=== PATIENT | male | born 1945 | race Caucasian/White ===

== ENCOUNTER 2017-03-28 12:09 | Emergency (ER) | payer MEDICARE, OTHER ==
[~2017-03-28] VITALS: Ht 180.3 cm; Wt 75.7 kg
[~2017-03-28 12:09] MED LIST: CORT5TAB PO; FURO40TA PO; LISI-515 PO; PANT20 PO; ROSU10 PO
[2017-03-28 12:13] VITALS: BP 106/74; PULSE 96; RESP 16; TEMP 97.7; O2SAT 99
[2017-03-28] MEDS ORDERED: diphenhydrAMINE HCL 50 MG/ML VIAL IV PUSH ONE (12:45)
[2017-03-28] MEDS ORDERED: DEXAMETHASONE SOD PHOS 20 MG/5 ML VIAL IV PUSH ONE (12:45)
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
[2017-03-28 13:44] VITALS: BP 110/70
== END 2017-03-28 13:45 | disposition home or self-care (01) ==
LOC: PHED 12:09
DX: T78.3XXA Angioneurotic edema, initial encounter (principal); R22.0 Localized swelling, mass and lump, head; M19.90 Unspecified osteoarthritis, unspecified site; E78.00 Pure hypercholesterolemia, unspecified; J44.9 Chronic obstructive pulmonary disease, unspecified; I10 Essential (primary) hypertension; F17.200 Nicotine dependence, unspecified, uncomplicated; Z79.899 Other long term (current) drug therapy
CPT/HCPCS: 96374; 96375; 99284; J1100; J1200

== ENCOUNTER 2017-06-23 14:41 | Emergency (ER) | payer MEDICARE, OTHER ==
[~2017-06-23] VITALS: Ht 180.3 cm; Wt 77.0 kg
[~2017-06-23 14:41] MED LIST changes: -LISI-515 PO; +TRAM50TA PO
[2017-06-23 14:49] VITALS: BP 114/80; PULSE 81; RESP 16; TEMP 98.2; O2SAT 97
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
[2017-06-23] MEDS ORDERED: TEMA7.5C PO (15:57)
[2017-07-28] MEDS ORDERED: FURO40TA (14:22)
[2017-07-28] MEDS ORDERED: TRAM50TA PO (14:22)
[2017-08-07] MEDS ORDERED: VITA1000 PO (08:18)
[2017-08-07] MEDS ORDERED: BIOT10TA PO (08:18)
[2017-08-07] MEDS ORDERED: FURO20TA PO (08:18)
[2017-08-07] MEDS ORDERED: VITA200C3 PO (08:18)
[2017-08-07] MEDS ORDERED: VITACAP7 PO (08:18)
[2017-08-07] MEDS ORDERED: MULT-65 PO (08:18)
[2017-08-07] MEDS ORDERED: LISI-519 PO (08:20)
== END 2017-06-23 16:12 | disposition home or self-care (01) ==
LOC: PHED 14:41
DX: S39.011A Strain of muscle, fascia and tendon of abdomen, initial encounter (principal); J44.9 Chronic obstructive pulmonary disease, unspecified; F17.200 Nicotine dependence, unspecified, uncomplicated; X58.XXXA Exposure to other specified factors, initial encounter
CPT/HCPCS: 99281

== ENCOUNTER → 2017-08-07 | Outpatient (CLI) | payer MEDICARE, OTHER ==
[~2017-08-07] MED LIST changes: +BIOT10TA PO; -CORT5TAB PO; +DOCU100C PO; +FURO20TA PO; +FURO40TA; -FURO40TA PO; +HYDR-3535 PO; +LISI-519 PO; +MULT-65 PO; -PANT20 PO; +TEMA7.5C PO; +TIOT1AER; +VITA1000 PO; +VITA200C3 PO; +VITACAP7 PO
[2017-08-07 09:05] LABS: AUTOMATED NEUTROPHIL # 1.9 TH/MM3 (1.8-7.7); BASOPHIL % 0.6 % (0.0-2.0); EOSINOPHIL # 0.3 TH/MM3 (0-0.4); EOSINOPHIL % 6.4 % (0.0-4.0); HEMATOCRIT 41.2 % (39.0-51.0); HEMO FLAGS DIFF FINAL; LYMPH % 45.9 % (9.0-44.0); LYMPHOCYTE # 2.4 TH/MM3 (1.0-4.8); MEAN CELL VOLUME 96.8 FL (80.0-100.0); MEAN CORPUSCULAR HEMOGLOBIN 33.6 PG (27.0-34.0); MEAN CORPUSCULAR HGB CONC 34.7 % (32.0-36.0); MONO % 9.8 % (0.0-8.0); NEUT % 37.3 % (16.0-70.0); PLATELET COUNT 118 TH/MM3 (150-450); RED BLOOD COUNT 4.26 MIL/MM3 (4.50-5.90); RED CELL DISTRIBUTION WIDTH 13.2 % (11.6-17.2); WHITE BLOOD COUNT 5.1 TH/MM3 (4.0-11.0)
[2017-08-07 09:14] LABS: APTT (PATIENT) 37.8 SEC (24.3-30.1); PROTHROMBIN TIME - PATIENT 11.2 SEC (9.8-11.6)
[2017-08-07 09:19] LABS: BLOOD, URINE NEG (NEG); COMMENT (UR) CULT NOT INDICATED; CULTURE IF INDICATED CULT NOT INDICATED; GLUCOSE,URINE NEG (NEG); HYALINE CAST, URINE 3 /lpf (RARE); KETONE, URINE NEG (NEG); NITRITE,URINE NEG (NEG); PH, URINE 6.5 (5.0-8.5); URINE COLOR YELLOW (YELLW/STRAW)
[2017-08-07 09:32] LABS: ANION GAP 4 MEQ/L (5-15); AST (GOT) 27 U/L (15-37); BICARBONATE 30.6 MEQ/L (21.0-32.0); BLOOD UREA NITROGEN 13 MG/DL (7-18); CHLORIDE 106 MEQ/L (98-107); GLOMERULAR FILTRATION RATE 58 ML/MIN (>89); GLUCOSE,FASTING 83 MG/DL (74-99); POTASSIUM 3.3 MEQ/L (3.5-5.1); SODIUM (NA) 141 MEQ/L (136-145)
[2017-08-07 09:37] LABS: ALKALINE PHOSPHATASE 108 U/L (45-117); ALT (GPT) 21 U/L (12-78); TOTAL BILIRUBIN ADULT 0.4 MG/DL (0.2-1.0)
== END ==
LOC: CPRE 08:02
PROVIDERS: ATTEND Neurological Surgery
DX: Z01.812 Encounter for preprocedural laboratory examination (principal); Z01.818 Encounter for other preprocedural examination; M43.10 Spondylolisthesis, site unspecified
CPT/HCPCS: 36415; 80053; 81001; 85025; 85610; 85730

== ENCOUNTER 2017-08-12 06:27 | Inpatient (IN) | payer MEDICARE, OTHER ==
[~2017-08-12] VITALS: Ht 180.3 cm; Wt 76.3 kg
[~2017-08-12 06:27] MED LIST changes: -DOCU100C PO; -FURO40TA; -HYDR-3535 PO; -TIOT1AER
[2017-08-12] MEDS ORDERED: ACETAMINOPHEN 1000 MG/100 ML 100 ML IV ONE (06:54)
[2017-08-12] MEDS ORDERED: INSULIN HUMAN REGULAR 1,000 UNITS/10 ML VIAL SQ PRN (07:15)
[2017-08-12] MEDS ORDERED: SODIUM CHLORID 0.9% 500 ML IV PRN (07:15)
[2017-08-12] MEDS ORDERED: LACTATED RINGER'S 1000 ML IV PRN (07:15)
[2017-08-12] MEDS ORDERED: METOPROLOL TARTRATE 25 MG TAB PO PRN (07:15)
[2017-08-12] MEDS ORDERED: SODIUM CHLOR 0.9% 1000 ML INJ 1,000 ML IV SCH (07:15)
[2017-08-12] MEDS ORDERED: VANCOMYCIN 1000 MG/NS 250 ML IV SCH ×2 (07:15)
[2017-08-12] MEDS ORDERED: CHLORHEXIDINE GLUCONATE 2 % 1 PACK (2 CLOTHS) TOPICAL PRN (07:15)
[2017-08-12] MEDS ORDERED: POVIDONE IODINE 5% (ANTISEPSIS KIT) 4 APPLICATIONS EACH NARE PRN (07:15)
[2017-08-12] MEDS ORDERED: HEPARIN SODIUM - SQ 10,000 UNITS/ML VIAL ONE (08:07)
[2017-08-12] MEDS ORDERED: THROMBIN (TOPICAL) 5,000 UNIT VIAL ONE (08:08)
[2017-08-12] MEDS ORDERED: GENTAMICIN SULFATE 80 MG/2 ML VIAL ONE (08:08)
[2017-08-12] MEDS ORDERED: ceFAZolin 2 GM PREMIX 50 ML ONE (08:08)
[2017-08-12] MEDS ORDERED: GELFOAM SIZE 100 ONE (08:08)
[2017-08-12] MEDS ORDERED: BUPIVACAINE HCL PF 0.5% 30 ML VIAL ONE ×2 (08:09→08:12)
[2017-08-12] MEDS ORDERED: VANCOMYCIN HCL 1000 MG VIAL ONE (08:12)
[2017-08-12 08:15] LABS: APTT (PATIENT) 37.1 SEC (24.3-30.1); PROTHROMBIN TIME - PATIENT 11.4 SEC (9.8-11.6)
[2017-08-12] MEDS ORDERED: PROPOFOL 500 MG/50 ML INJ 150 ML ONE (08:31)
[2017-08-12] MEDS ORDERED: FAMOTIDINE 20 MG/2 ML VIAL ONE (08:31)
[2017-08-12] MEDS ORDERED: BUPIVACAINE/EPINEPHRINE 0.5% 50 ML VIAL ONE (10:10)
[2017-08-12] MEDS ORDERED: ePHEDrine/NS 25 MG/5 ML SYR IV ONE (12:00)
[2017-08-12] MEDS ORDERED: NEOSTIGMINE 3 MG/3 ML SYR IV ONE (12:00)
[2017-08-12] MEDS ORDERED: ONDANSETRON HCL 4 MG/2 ML VIAL IV PUSH ONE (12:00)
[2017-08-12] MEDS ORDERED: PHENYLEPH/NS 1000 MCG/10 ML SYR IV ONE (12:00)
[2017-08-12] MEDS ORDERED: DEXAMETHASONE SOD PHOS 4 MG/ML VIAL IV ONE (12:00)
[2017-08-12] MEDS ORDERED: LACTATED RINGER'S 1000 ML INJ 1,000 ML IV ONE (12:00)
[2017-08-12] MEDS ORDERED: MIDAZOLAM HCL 2 MG/2 ML VIAL IV ONE (12:00)
[2017-08-12] MEDS ORDERED: GLYCOPYRROLATE 1 MG/5 ML SYRINGE IV PUSH ONE (12:00)
[2017-08-12] MEDS ORDERED: LIDOCAINE HCL 1% PF 5 ML AMPULE OTHER ONE (12:00)
[2017-08-12] MEDS ORDERED: PROPOFOL 200 MG/20 ML AMP IV ONE (12:00)
[2017-08-12] MEDS ORDERED: DO NOT ADM ANY ANTICOAGULANT DRUGS PRN (14:05)
[2017-08-12] MEDS ORDERED: *MEPERIDINE 25 MG INJ VIAL PERIprocedural Use ONLY ONE (14:25)
[2017-08-12] MEDS ORDERED: SODIUM CHLORIDE 0.9% FLUSH 5 ML FLUSH IVF PRN (14:45)
[2017-08-12] MEDS ORDERED: diphenhydrAMINE HCL 50 MG/ML VIAL IV PUSH PRN (14:45)
[2017-08-12] MEDS ORDERED: NALOXONE HCL 0.4 MG/ML AMP IV PUSH PRN (14:45)
--- NOTE | 2017-08-12 14:51 | PD.OP ---
Operative Report Date of Surgery: Aug 12, 2017 Preoperative Diagnosis: LUMBAR SPONDYLOSIS AND DISK HERNIATION Postoperative Diagnosis: LUMBAR SPONDYLOSIS AND DISK HERNIATION Procedure: L5-S1 laminectomy, interbody arthrodhesis using PEEK cage and autologous bone graft, L5-S1 instrumental fixation using transpedicular screws and rods, L5-S1 posterolateral fusion using autologous bone graft and demineralized bone matrix. Microsurgical dissection Anesthesia: GENERAL Surgeon: Andrew Davila Mental Measurements Teacher(s): Penny Saleh Operation and Findings: INDICATIONS FOR PROCEDURE Mr. Elena is a 72 year-old male who presented with intractable mechanical back pain and caroline evidence of lower extremity radiculopathy. He has history of a prior L3-L5 posterior instrumented fusion. He has developed severe adjacent level degenerative disk disease with a large disk herniation at L5-S1. He failed maximum nonsurgical management including multiple modalities of conservative treatment as well as pain management interventions by an interventional pain specialist. The patient has undergone a previous surgical procedure. A redo surgical decompression and arthrodhesis were indicated as a last resort. The [id number] details of the procedure, indications, alternatives, risks and potential complications were fully discussed with the patient. The patient fully understood. All the questions were answered. No guarantees were given. The patient voiced requesting the procedure and provided informed consents. The patient was offered the alternative of delaying the procedure and continuing with nonsurgical management. DETAILS OF THE SURGICAL PROCEDURE Prior to the procedure, the surgical incision was marked in the preoperative surgical holding room, and the procedure, risks, and potential complications revisited with the patient. Placement of electrodes for intraoperative neurophysiological monitoring was completed. The patient was taken to the operative room, and following induction of general anesthesia, endotracheal intubation was performed. A Iverson catheter, bilateral JAMESON hose and sequential compression devices were placed and kept throughout the procedure. The patient was positioned prone, over a Jaya table using gel pads and bolsters.. All pressure in the preoperative surgical holding room points were carefully padded with eggcrate and gel mattress. The eyes were taped shut after ointment was applied by the anesthesiologist to prevent corneal abrasion. A bear hugger was placed over the exposed upper body to maintain control of the core body temperature. The electrophysiological team placed needles and electrodes in the proper location and baseline SSEPs were registered prior to and after positioning. Following positioning the levels were carefully assessed using AP and lateral views with the C-arm. The surgical procedure was performed in several steps as follows: SURGICAL APPROACH Once the patient was positioned and the proper levels were confirmed with the C-arm, a midline incision was outlined on the skin extending from the spinous process of L4 to S1. The skin incision was made with a #10 blade. Small subcutaneous bleeders were controlled with the cautery and the dissection was carried out into the deeper planes opening the thoracolumbar fascia with the Bovie. The spinous process of L4-S1 were identified and a subperiosteal dissection was carried out over the spinous process laminae, facet and transverse processes of L4-S1. The prior instrumentation at L3, L4, and L5 was carefully exposed and a self-retaining retractor was placed on the incision. At this point of the procedure, the caps of the previously placed screws at L3, L4, and L5 were sequentially removed allowing removal of the rods. INSTRUMENTAL FIXATION At this point of the procedure, placement of bilateral transpedicular screws was necessary for stabilization of the spine. Initially, the entry point for the screw was selected anatomically at the junction of the facet joint, transverse process and para interarticularis. Bilateral transpedicular screws were placed at S1. The screw trajectory was initiated with a TPS drill using an AM8 drill attachment followed by the use of an awl, and then a pedicle finder, to cannulize the screw trajectory into the arterial body. A ball-tipped sounder was used to ensure integrity of the trajectory. A tap was used to create the propper threads for the screws. The trajectory was then reassessed with a ball-tipped sounder. Finally, bilateral transpedicular screws were carefully inserted bilaterally at S1 under fluoroscopic visualization. A proper purchase was achieved with all screws. The position for each screw was assessed electrophysiologically stimulating each screw stimulating each screw with a nerve stimulator and radiologically with an AP, lateral and oblique views. Scan obtained with the isocentric C-arm. SURGICAL DECOMPRESSION The patient had significant mass effect over the thecal sac and exiting nerve roots S1. In order to relieve the neuro compression, it was necessary to perform a decompressive laminectomy, to allow proper decompression of the spinal canal and bilateral lateral recess and foramen. Note that the scope of such decompression was significantly more extensive than the minimal exposure necessary to perform and interbody fusion as the patient has severe facet arthropathy and degeneration of the disk at L5-S1 with hypertrophic joint facets. At this point of the procedure, the operative microscope was draped in the usual sterile fashion and brought to the field. The rest of the surgical procedure was performed using microdissection technique with exception of the closure. Under the operative microscope, a bilateral decompressive laminectomy was performed at L5-S1. The spinous processes were removed with an Leksell and the laminae was drilled bilaterally with the TPS drill exposing the ligamentum flavum. There was severe facet arthropathy and in order to achieve a proper decompression, signicant amount of facet had to be drilled with a TPS drill, which resulted in further instability. The superior border of the ligamentum flavum was carefully elevated with a nerve hook and ligamentum dissector and removed with the 3mm and 4mm Kerrison. The L3 and L4 nerve roots were identified and followed towards the foramen. A bilateral foraminotomy was performed with a Kerrison. The lateral epidural space was carefully exposed and epidural veins were coagulated with the bipolar and incised with microscissors. Gentle medial retraction of the thecal sac allowed to expose the disk space L5-S1. The annulus was coagulated with the bipolar and incised with an 11 blade and a microdiskectomy was exposed in the standard fashion allowing for excellent decompression of the neuro structures. There was severe degeneration of the disk INTERBODY ARTHRODHESIS An interbody arthrodesis is necessary in order to further stabilize the spine and maintain distraction of the disk space and to increase the chances of obtaining a solid interbody fusion, it was necessary the insertion of an interbody device into the disk space. Otherwise, the disk space could collapse compromising the surgical results. At this point of the procedure, the microdiskectomy was completed at L5-S1 A reverse angled curet was applied to underneath the posterior longitudinal ligament and used to push the disk fragments into the disk space so they could be safely removed with the pituitary forceps. Once the diskectomy was completed, it was necessary to distract the space and decorticate the endplates in order to eliminate the cartilaginous endplate and expose healthy bone appropriate to perform the interbody fusion. The endplates at L5-S1 were distracted with a paddle distractor and then carefully decorticated using a series of bone lynn, ring curets, eliminating the cartilaginous endplate and exposing healthy bone. Disk distractor was used to increase the site. Initial motion was noted at the disk which was consistent with instability due to severe facet arthropathy. Once a thorough preparation of the disk space was achieved, the disk space was irrigated with antibiotic solution and the interbody arthrodesis performed by carefully impacting a Peek cage filled with autologous iliac crest bone graft in position. The use of several showed impactor with different angulations allowed for excellent positioning of the interbody cage. A solid position of the cage with good purchase into the disk space was achieved. The position of the cage was assessed anatomically without AP and lateral probe and radiologically with a C-arm. POSTEROLATERAL FUSION The posterolateral fusion is a critical component to the procedure to prevent future fatigue of the instrumentation and stabilize the spine. Initially the transverse processes of the vertebral bodies L5-S1, lateral surface of the facet lateral gutters of the spine at L5-S1 were carefully cleaned from all soft tissue and muscle attachments. The area was irrigated with antibiotic solution. Subsequently, the transverse processes, lateral surface of the facets and lateral gutters of the spine were thoroughly decorticated using the TPS drill with a 5 mm cutting venkata exposing cancellous bone in preparation of the posterolateral fusion. The incision was then irrigated again with antibiotic solution and the posterolateral fusion was performed by carefully packing the gutters of the spine at L5-S1 with autologous iliac crest bone, and with demineralized bone matrix. As much bone as possible was packed in the gutters of the spine. COMPLETION OF INSTRUMENTATION AND CLOSURE The rods were brought to the field, applied to all the screws. The screw caps were sequentially applied. Compression was performed between the pedicle screws at L5-S1 and final tightening of all screws was completed using a pre-calibrated torque wrench. A cross link was used to connect the rods in order to increase the stability of the construct. The cross links were secured using a pre-calibrated torque wrench. The incision was again irrigated with a large amount of antibiotic solution. Hemostasis was secured with the bipolar cautery. The Valsalva maneuver performed by anesthesiologist failed to show any evidence of cerebrospinal fluid leak or bleeding. A 7 mm Jaya-Hendricks drain was left in the epidural space and externalized through a separate stab incision. The incision was closed in planes. 0 Vicryl was used in interrupted fashion to close the thoracolumbar fascia and the superficial fascia. The subcutaneous tissue was approximated with 3-0 Vicryl. Special care was taken to avoid any space. The skin was closed with 4-0 Vicryl in a running fashion. Each plane of closure was irrigated with antibiotic solution. An optifoam dressing was applied At the end of the procedure the sponge, needle and instrument counts were all correct. Estimated blood loss was 250 cc or less. No blood transfusion was given. The entire procedure was performed using continuous electrophysiological monitoring of the somato sensorial evoked potentials and EMG. The patient received prophylactic antibiotics. The patient was then extubated and transferred to the recovery room in stable condition. Andrew Davlia MD Aug 12, 2017 14:51
[2017-08-12] MEDS ORDERED: PILL SPLITTER OTHER PRN (15:00)
[2017-08-12] MEDS ORDERED: ACETAMINOPHEN 325 MG TAB PO PRN (15:00)
[2017-08-12] MEDS: NS + KCL 20 MEQ INJ 1,000 ML IV SCH (15:00)
[2017-08-12] MEDS: HYDROmorphone HCL PCA 6 MG/30 ML IV SCH (15:16)
[2017-08-12] MEDS: ceFAZolin 2 GM PREMIX 50 ML IV SCH (17:00)
--- NOTE | 2017-08-12 17:28 | PD.CONS ---
[facility] By Dr[facility] Davila Reason for Consult Medical management and help with alcohol and tobacco abuse Primary Care Physician Caio Lucia Diagnoses: (1) Status post lumbar spinal fusion History of Present Illness Mr. Elena is a 72 year-old male who presented with intractable mechanical back pain and caroline evidence of lower extremity radiculopathy. He has history of a prior L3-L5 posterior instrumented fusion. He has developed severe adjacent level degenerative disk disease with a large disk herniation at L5-S1. He failed maximum nonsurgical management including multiple modalities of conservative treatment as well as pain management interventions by an interventional pain specialist. The patient has undergone a previous surgical procedure. A redo surgical decompression and arthrodhesis were indicated as a last resort. We have been asked to see the patient regarding help with medical management. Patient has a extensive medical history of hypertension hyperlipidemia tobacco COPD alcohol abuse and marijuana abuse as well as bladder issues We'll make sure that that placed the patient on CIWA protocol I discussed with the patient and Dr. Davila Review of Systems Constitutional: DENIES: Diaphoretic episodes, Fatigue, Fever, Weight gain, Weight loss, Dizziness, Change in appetite Endocrine: DENIES: Heat/cold intolerance, Polydipsia, Polyuria, Polyphagia Eyes: DENIES: Blurred vision, Diplopia, Eye inflammation, Eye pain, Vision loss Ears, nose, mouth, throat: DENIES: Tinnitus, Hearing loss, Vertigo, Nasal discharge, Oral lesions Respiratory: COMPLAINS OF: Cough, Sputum production, DENIES: Apneas, Snoring, Wheezing, Hemoptysis Cardiovascular: DENIES: Chest pain, Palpitations, Syncope, Dyspnea on Exertion , PND, Lower Extremity Edema Gastrointestinal: DENIES: Abdominal pain, Black stools, Bloody stools, Constipation Genitourinary: DENIES: Sexual dysfunction, Urinary frequency, Urinary incontinence Musculoskeletal: COMPLAINS OF: Joint pain, DENIES: Muscle aches, Stiffness, Joint Swelling Integumentary: DENIES: Abnormal pigmentation, Nail changes Hematologic/lymphatic: DENIES: Bruising, Lymphadenopathy Immunologic/allergic: DENIES: Eczema, Urticaria Neurologic: COMPLAINS OF: Abnormal gait, Localized weakness, Paresthesias, DENIES: Headache, Seizures, Speech Problems, Tremor Psychiatric: DENIES: Anxiety, Confusion, Mood changes, Depression, Hallucinations, Agitation, Suicidal Ideation Past Family Social History Allergies: Coded Allergies: adhesive (Unverified Allergy, Severe, SKIN PEELS OFF, 08/12/17) penicillin G (Unverified Allergy, Intermediate, passes out, 08/12/17) Past Medical History Hypertension Hyperlipidemia Tobacco abuse COPD Alcohol abuse Marijuana use Kidney stones and osteoarthritis Prior cervical surgery Prior lumbar surgery Past Surgical History Bilateral cataracts Tonsillectomy Cervical surgery Left total knee Reported Medications Reported Meds & Active Scripts Active Reported Lisinopril 5 Mg Tab 5 Mg PO DAILY Biotin 10 Mg Tab 10 Mg PO DAILY Vitamin D-1000 (Cholecalciferol) 1,000 Unit Tab 1,000 Units PO DAILY Vitamin E 200 Unit Cap 400 Units PO DAILY B Complex (B-Complex Vitamins) 1 Cap 1 Cap PO DAILY Multi-Vitamin Daily (Multiple Vitamin) 1 Tab Tab 1 Tab PO DAILY Furosemide 20 Mg Tab 10 Mg PO DAILY Tramadol (Tramadol HCl) 50 Mg Tab 50 Mg PO HS Temazepam 7.5 Mg Cap 7.5 Mg PO HS PRN Crestor (Rosuvastatin Calcium) 10 Mg Tab 10 Mg PO DAILY Active Ordered Medications Current Medications Acetaminophen 100 ml @ As Directed STK-MED ONCE IV ; Start 08/12/17 at 06:54; Stop 08/12/17 at 06:55; Status DC Lactated Ringer's 1,000 ml @ 30 mls/hr Q24H PRN IV SEE LABEL COMMENTS Last administered on 08/12/17 08:00; Start 08/12/17 at 07:15; Stop 08/15/17 at 07 :14 Sodium Chloride 500 ml @ 30 mls/hr [id number] PRN IV SEE LABEL COMMENTS; Start at 07:15; Stop 08/15/17 at 07:14 Metoprolol Tartrate (Lopressor) 25 mg AERIAL PLANTING AND CULTIVATION MANAGER PRN PO SEE LABEL COMMENTS; Start 08/12/17 at 07:15; Stop 08/15/17 at 07:14 Povidone Iodine (Betadine 5% Antisepsis Kit) 1 applic AERIAL PLANTING AND CULTIVATION MANAGER PRN EACH NARE SEE LABEL COMMENTS Last administered on 08/12/17 08:00; Start 08/12/17 at 07: 15; Stop 08/15/17 at 07:14 Chlorhexidine Gluconate (Chlorhexidine 2% Cloth) 3 pack AERIAL PLANTING AND CULTIVATION MANAGER PRN TOPICAL SEE LABEL COMMENTS Last administered on 10/10/17at 07:30; Start 08/12/17 at 07: 15; Stop 08/15/17 at 07:14 Insulin Human Regular (NovoLIN R INJ) See Protocol Table ... AERIAL PLANTING AND CULTIVATION MANAGER PRN SQ SEE PROTOCOL TABLE; Start 08/12/17 at 07:15; Stop 08/15/17 at 07:14 Sodium Chloride 1,000 ml @ 30 mls/hr Q24H IV ; Start 08/12/17 at 07:15; Stop 08/13/17 at 07:14 Vancomycin HCl 1000 mg/Sodium Chloride 250 ml @ 250 mls/hr AERIAL PLANTING AND CULTIVATION MANAGER IV ; Start 08/12/17 at 07:15; Stop 08/13/17 at 07:14 Heparin Sodium (Porcine) (Heparin Inj) 30,000 units STK-MED ONCE .ROUTE ; Start 08/12/17 at 08:07; Stop 08/12/17 at 08:08; Status DC Thrombin (Thrombin Top Soln) 10,000 units STK-MED ONCE .ROUTE Last administered on 08/12/17 11:00; Start 08/12/17 at 08:08; Stop 08/12/17 at 08 :09; Status DC Cefazolin Sodium/ Dextrose 50 ml @ As Directed STK-MED ONCE .ROUTE Last administered on 08/12/17 10:07; Start 08/12/17 at 08:08; Stop 08/12/17 at 08 :09; Status DC Gelatin (Gelfoam 100 Top) 1 foam STK-MED ONCE .ROUTE Last administered on 08/12 11:00; Start 08/12/17 at 08:08; Stop 08/12/17 at 08:09; Status DC Gentamicin Sulfate (Gentamicin Inj) 240 mg STK-MED ONCE .ROUTE Last administered on 08/12/17 11:00; Start 08/12/17 at 08:08; Stop 08/12/17 at 08 :09; Status DC Bupivacaine HCl (Marcaine Pf 0.5% Inj) 30 ml STK-MED ONCE .ROUTE ; Start at 08:09; Stop 08/12/17 at 08:10; Status DC Vancomycin HCl (Vancomycin Inj) 1,000 mg STK-MED ONCE .ROUTE Last administered on 08/12/17 11:00; Start 08/12/17 at 08:12; Stop 08/12/17 at 08:13; Status DC Bupivacaine HCl (Marcaine Pf 0.5% Inj) 30 ml STK-MED ONCE .ROUTE ; Start at 08:12; Stop 08/12/17 at 08:13; Status DC Propofol 150 ml @ As Directed STK-MED ONCE .ROUTE ; Start 08/12/17 at 08:31; Stop 08/12/17 at 08:32; Status DC Famotidine (Pepcid Inj) 20 mg STK-MED ONCE .ROUTE ; Start 08/12/17 at 08:31; Stop 08/12/17 at 08:32; Status DC Bupivacaine HCl/ Epinephrine Bitart (Sensorcaine-Epi 0.5% 50 ml Inj) 50 ml STK- MED ONCE .ROUTE Last administered on 08/12/17 11:45; Start 08/12/17 at 10:10 ; Stop 08/12/17 at 10:11; Status DC Meperidine HCl (*DEMEROL INJ PERIprocedural ONLY) 25 mg STK-MED ONCE .ROUTE Last administered on 08/12/17 14:25; Start 08/12/17 at 14:25; Stop 08/12/17 at 14:26; Status DC Potassium Chloride/Sodium Chloride 1,000 ml @ 100 mls/hr Q10H IV Last administered on 08/12/17 15:00; Start 08/12/17 at 14:33 IV Flush (NS Flush) 2 ml UNSCH PRN IVF FLUSH AFTER USING IV ACCESS; Start 08/19 at 14:45 IV Flush (NS Flush) 2 ml BID IVF ; Start 08/12/17 at 21:00 Cefazolin Sodium/ Dextrose 50 ml @ 100 mls/hr Q8H IV ; Start 08/12/17 at 17:00 ; Stop 08/13/17 at 09:29 Pantoprazole Sodium (Protonix Inj) 40 mg DAILY IVP ; Start 08/13/17 at 09:00 Morphine Sulfate (Morphine Inj) 2 mg Q2H PRN IV PUSH PAIN SCALE 1 TO 6; Start 08/12/17 at 15:00 Morphine Sulfate (Morphine Inj) 4 mg Q2H PRN IV PUSH PAIN SCALE 7 TO 10; Start 08/12/17 at 15:00 Acetaminophen (Tylenol) 650 mg Q4H PRN PO TEMPERATURE > 101.5 F; Start at 15:00 Naloxone HCl (Narcan Inj) 0.4 mg UNSCH PRN IV PUSH RESPIRATORY RATE LESS THAN 10; Start 08/12/17 at 14:45 Diphenhydramine HCl (Benadryl Inj) 25 mg Q6H PRN IV PUSH ITCHING; Start at 14:45 Hydromorphone HCl (Dilaudid INSPECTING ENGINEER Inj) 6 mg UNSCH IV Last administered on t 15:16; Start 08/12/17 at 14:45 INSPECTING ENGINEER Dosage Infused (Pha) 1 Q8HR .XX ; Start 08/12/17 at 22:00 Miscellaneous Information ALL NURSING DEPARTME... UNSCH PRN .XX SEE LABEL COMMENTS; Start 08/12/17 at 14:05; Stop 08/13/17 at 14:04 Cholecalciferol (Vitamin D3) 1,000 units DAILY PO ; Start 08/13/17 at 09:00 Furosemide (Lasix) 10 mg DAILY PO ; Start 08/13/17 at 09:00 Lisinopril (Prinivil) 5 mg DAILY PO ; Start 08/13/17 at 09:00 Temazepam (Restoril) 7.5 mg HS PRN PO INSOMNIA; Start 08/12/17 at 21:00 Tramadol HCl (Ultram) 50 mg HS PO ; Start 08/12/17 at 21:00 Vitamin B Complex/ Vitamin C (Allbee C) 1 tab DAILY PO ; Start 08/13/17 at 09: 00 Non-Formulary Medication 10 mg DAILY PO ; Start 08/13/17 at 09:00; Stop at 09:00; Status DC Multivitamins (Theragran) 1 tab DAILY PO ; Start 08/13/17 at 09:00 Atorvastatin Calcium (Lipitor) 20 mg DAILY PO ; Start 08/13/17 at 09:00 Vitamin E (Vitamin E) 400 units DAILY PO ; Start 08/13/17 at 09:00 Miscellaneous (Pill Splitter) 1 ea UNSCH PRN OTHER SEE LABEL COMMENTS; Start 08/12/17 at 15:00 Thiamine HCl (Vitamin B1) 100 mg DAILY PO ; Start 08/13/17 at 09:00 Folic Acid (Folate) 1 mg DAILY PO ; Start 08/13/17 at 09:00 Family History Stomach ulcers in the family as well as tobacco abuse Social History Drinks gin and tonic Smokes a pack every 3 days Occasional marijuana Physical Exam Vital Signs Vital Signs Date Time Temp Pulse Resp B/P (MAP) Pulse Ox O2 Delivery O2 Flow Rate FiO2 08/12/17 15:16 15 08/12/17 14:05 96.7 80 17 108/58 (75) 100 Nasal Cannula 3 08/12/17 07:59 97.5 64 18 115/75 (88) 97 Physical Exam GENERAL: This is a well-nourished, well-developed patient, in no apparent distress. SKIN: No rashes, ecchymoses or lesions. Cool and dry. HEAD: Atraumatic. Normocephalic. No temporal or scalp tenderness. EYES: Pupils equal round and reactive. Extraocular motions intact. No scleral icterus. No injection or drainage. ENT: Nose without bleeding, purulent drainage or septal hematoma. Throat without erythema, tonsillar hypertrophy or exudate. Uvula midline. Airway patent. Tongue is midline NECK: Trachea midline. No JVD or lymphadenopathy. Supple, nontender, no meningeal signs. CARDIOVASCULAR: Regular rate and rhythm without murmurs, gallops, or rubs. S1- S2 no S3 or S4 RESPIRATORY: Clear to auscultation. Breath sounds equal bilaterally. No wheezes , rales, or rhonchi. GASTROINTESTINAL: Abdomen soft, non-tender, nondistended. No hepato-splenomegaly , or palpable masses. No guarding. MUSCULOSKELETAL: Extremities without clubbing, cyanosis, or edema. No joint tenderness, effusion, or edema noted. No calf tenderness. Negative Homans sign bilaterally. NEUROLOGICAL: Awake and alert. Cranial nerves II through XII intact. Motor and sensory grossly within normal limits. Five out of 5 muscle strength in all muscle groups. Normal speech. Insight and judgment is good; mood and behaviors appropriate Laboratory Laboratory Tests Test 08/12/17 07:50 Prothrombin Time 11.4 Prothromb Time International Ratio 1.0 Activated Partial Thromboplast Time 37.1 Assessment and Plan Problem List: (1) Hypertension ICD Code: I10 - Essential (primary) hypertension (2) Hyperlipidemia ICD Code: E78.5 - Hyperlipidemia, unspecified (3) COPD (chronic obstructive pulmonary disease) ICD Code: J44.9 - Chronic obstructive pulmonary disease, unspecified (4) Tobacco abuse ICD Code: Z72.0 - Tobacco use (5) Alcohol abuse ICD Code: F10.10 - Alcohol abuse, uncomplicated (6) Osteoarthritis ICD Code: M19.90 - Unspecified osteoarthritis, unspecified site (7) Status post lumbar spinal fusion ICD Code: Z98.1 - Arthrodesis status Status: Acute Assessment and Plan Status post lumbar surgery pain control to Dr. Davila. Alcohol abuse continue on CIWA protocol continue on multivitamin thiamine and folic acid Tobacco abuse NicoDerm patch and duo nebs as needed COPD duo nebs as needed Hypertension home medications hyperlipidemia home medications Pain control per Dr. Giovanni guzman Physical therapy and occupational therapy as able Code Status Full code Discussed Condition With Patient and RN and Danny Gaspar DO Aug 12, 2017 17:28
[2017-08-12] MEDS ORDERED: FLUMAZENIL 0.5 MG/5 ML VIAL IV PUSH PRN (17:30)
[2017-08-12] MEDS ORDERED: HALOPERIDOL LACTATE 5 MG/ML AMP IM PRN (17:30)
[2017-08-12] MEDS ORDERED: LORazepam 2 MG/ML VIAL IV PUSH PRN ×4 (17:30)
[2017-08-12] MEDS ORDERED: NICOTINE 7 MG/24 HR PATCH T-DERMAL ONE (17:30)
[2017-08-12] MEDS ORDERED: LORazepam 1 MG TAB PO PRN (17:30)
[2017-08-12] MEDS ORDERED: LORazepam 2 MG TAB PO PRN (17:30)
[2017-08-12 17:43] VITALS: BP 117/74; PULSE 95; RESP 18; TEMP 97.5; O2SAT 98
[2017-08-12 21:27] VITALS: BP 109/66; PULSE 80; RESP 20; TEMP 97.4; O2SAT 95
[2017-08-12] MEDS: MORPHINE SULFATE 4 MG/ML INJ IV PUSH PRN (21:28)
[2017-08-12] MEDS: guaiFENesin E.R. 600 MG TAB PO SCH (21:28)
[2017-08-12] MEDS: SODIUM CHLORIDE 0.9% FLUSH 5 ML FLUSH IVF SCH (21:29)
[2017-08-12] MEDS: traMADol HCL 50 MG TAB PO SCH (21:29)
[2017-08-12] MEDS: TEMAZEPAM 7.5 MG CAP PO PRN (21:50)
[2017-08-12] MEDS: PCA - TOTAL MG DILAUDID DELIVERED PER SHIFT SCH (22:56)
[2017-08-13] VITALS (8 sets, daily range): BP systolic 89–113; BP diastolic 52–64; PULSE 79–99; RESP 16–20; TEMP 97.7–98; O2SAT 96–99
[2017-08-13] MEDS: ceFAZolin 2 GM PREMIX 50 ML IV SCH ×2 (00:31→08:40)
[2017-08-13] MEDS: NS + KCL 20 MEQ INJ 1,000 ML IV SCH ×3 (00:32→21:10)
[2017-08-13] MEDS: HYDROmorphone HCL PCA 6 MG/30 ML IV SCH ×2 (00:35→17:22)
[2017-08-13] MEDS: PCA - TOTAL MG DILAUDID DELIVERED PER SHIFT SCH ×2 (05:57→14:00)
--- NOTE | 2017-08-13 07:23 | RADRPT ---
EXAM DATE/TIME: 08/12/2017 10:00 [facility] COMPARISON: SPINE LUMBAR LTD (AP & LAT), February 21, 2016, 11:41. INDICATIONS : Post-op L5-S1 posterior lumbar fusion. MEDICAL HISTORY : None. SURGICAL HISTORY : Fusion, lumbar. ENCOUNTER: Initial ACUITY: 1 day PAIN SCORE: Non-responsive. LOCATION: Lumbar spine. FINDINGS: Single AP view of the inferior aspect the lumbar spine demonstrates left-sided pedicular screws exten ding from L3-S1. There are right pedicular screws at L5-S1. CONCLUSION: Spot fluoroscopic image of the lumbar spine, as above. Ilan Michelle MD on August 13, 2017 at 7:16 Board Certified Radiologist. This report was verified electronically.
[2017-08-13] MEDS: LISINOPRIL 5 MG TAB PO SCH (08:33)
[2017-08-13] MEDS: VITAMIN E 400 UNIT CAP PO SCH (08:33)
[2017-08-13] MEDS: FOLIC ACID 1 MG TAB PO SCH (08:34)
[2017-08-13] MEDS: FUROSEMIDE 20 MG TAB PO SCH (08:34)
[2017-08-13] MEDS: ATORVASTATIN 20 MG TAB PO SCH (08:34)
[2017-08-13] MEDS: THIAMINE HCL 100 MG TAB PO SCH (08:34)
[2017-08-13] MEDS: SODIUM CHLORIDE 0.9% FLUSH 5 ML FLUSH IVF SCH ×2 (08:35→21:00)
[2017-08-13] MEDS: CHOLECALCIFEROL (VIT D3) 1000 UNIT TAB PO SCH (08:35)
[2017-08-13] MEDS: PANTOPRAZOLE SODIUM 40 MG VIAL IVP SCH (08:35)
[2017-08-13] MEDS: VITAMIN B COMPLEX/VIT C TAB PO SCH (08:36)
[2017-08-13] MEDS: guaiFENesin E.R. 600 MG TAB PO SCH ×2 (08:36→21:12)
[2017-08-13] MEDS: MULTIVITAMIN TAB PO SCH (08:36)
[2017-08-13] MEDS: NICOTINE 7 MG/24 HR PATCH T-DERMAL SCH (08:38)
[2017-08-13] MEDS: MORPHINE SULFATE 4 MG/ML INJ IV PUSH PRN (08:39)
[2017-08-13] MEDS: REMOVE OLD PATCH T-DERMAL SCH (08:42)
[2017-08-13] MEDS ORDERED: NON-FORMULARY DRUG (Biotin 10 MG) PO SCH (09:00)
[2017-08-13 10:27] LABS: AUTOMATED NEUTROPHIL # 11.6 TH/MM3 (1.8-7.7); BASOPHIL % 0.1 % (0.0-2.0); HEMATOCRIT 32.8 % (39.0-51.0); LYMPH % 6.9 % (9.0-44.0); LYMPHOCYTE # 0.9 TH/MM3 (1.0-4.8); MEAN CELL VOLUME 98.5 FL (80.0-100.0); MEAN CORPUSCULAR HEMOGLOBIN 33.2 PG (27.0-34.0); MEAN CORPUSCULAR HGB CONC 33.7 % (32.0-36.0); MONO % 7.1 % (0.0-8.0); NEUT % 85.9 % (16.0-70.0); PLATELET COUNT 89 TH/MM3 (150-450); RED BLOOD COUNT 3.32 MIL/MM3 (4.50-5.90); RED CELL DISTRIBUTION WIDTH 13.3 % (11.6-17.2); WHITE BLOOD COUNT 13.5 TH/MM3 (4.0-11.0)
[2017-08-13 10:31] LABS: HEMO FLAGS AUTO DIFF
[2017-08-13 10:55] LABS: ANION GAP 7 MEQ/L (5-15); AST (GOT) 50 U/L (15-37); BICARBONATE 25.2 MEQ/L (21.0-32.0); BLOOD UREA NITROGEN 16 MG/DL (7-18); CHLORIDE 107 MEQ/L (98-107); GLOMERULAR FILTRATION RATE 61 ML/MIN (>89); MAGNESIUM 2.1 MG/DL (1.5-2.5); POTASSIUM 4.8 MEQ/L (3.5-5.1); SODIUM (NA) 139 MEQ/L (136-145)
[2017-08-13 10:57] LABS: ALT (GPT) 20 U/L (12-78)
[2017-08-13 11:05] LABS: ALKALINE PHOSPHATASE 80 U/L (45-117); FREE T4 1.04 NG/DL (0.76-1.46); SCAN/DIFF AUTO DIFF CONFIRMED; TOTAL BILIRUBIN ADULT 0.5 MG/DL (0.2-1.0)
--- NOTE | 2017-08-13 11:48 | HHI.NSPN ---
(Merle Daniel) Note Status Status: Progress Note (Merle Daniel) Interval History Interval History Mr. Elena s/p L5-S1 laminectomy, interbody arthrodesis using PEEK cage and autologous bone graft, L5-S1 instrumental fixation using transpedicular screws and rods, L5-S1 posterolateral fusion using autologous bone graft and demineralized bone matrix. Microsurgical dissection on Aug 12, 2017 for lumbar spondylosis and disc herniation. 08/13: sitting up in chair this morning, pain controlled. denies focal weakness in legs. (Merle Daniel) Labs, Micro, & Vital Signs Results Date Time Temp Pulse Resp B/P (MAP) Pulse Ox O2 Delivery O2 Flow Rate FiO2 08/13/17 08:00 97.7 99 18 109/61 (77) 99 08/13/17 05:57 20 08/13/17 05:37 98.0 90 20 110/58 (75) 96 08/13/17 01:10 20 08/13/17 00:36 97.9 94 20 113/64 (80) 98 08/13/17 00:35 20 08/12/17 22:56 20 08/12/17 21:27 97.4 80 20 109/66 (80) 95 08/12/17 17:43 97.5 95 18 117/74 (88) 98 08/12/17 17:15 97.8 76 16 103/55 (71) 95 Nasal Cannula 2 08/12/17 17:00 78 16 100/58 (72) 96 Nasal Cannula 2 08/12/17 16:00 73 16 99/57 (71) 96 Nasal Cannula 2 08/12/17 15:30 97.6 74 16 100/60 (73) 96 Nasal Cannula 2 08/12/17 15:16 15 08/12/17 15:15 75 15 98/57 (71) 95 Nasal Cannula 2 08/12/17 15:00 97.1 77 15 101/59 (73) 95 Nasal Cannula 2 08/12/17 14:45 76 15 100/52 (68) 94 Nasal Cannula 2 08/12/17 14:30 96.9 78 15 102/55 (71) 94 Nasal Cannula 2 08/12/17 14:15 78 15 103/56 (72) 94 Nasal Cannula 2 08/12/17 14:05 96.7 80 17 108/58 (75) 100 Nasal Cannula 3 08/14/17 07:00 Intake Total 50 ml Balance 50 ml Constitutional Vital Signs Date Time Temp Pulse Resp B/P (MAP) Pulse Ox O2 Delivery O2 Flow Rate FiO2 08/13/17 08:00 97.7 99 18 109/61 (77) 99 08/13/17 05:57 20 08/13/17 05:37 98.0 90 20 110/58 (75) 96 08/13/17 01:10 20 08/13/17 00:36 97.9 94 20 113/64 (80) 98 08/13/17 00:35 20 08/12/17 22:56 20 08/12/17 21:27 97.4 80 20 109/66 (80) 95 08/12/17 17:43 97.5 95 18 117/74 (88) 98 08/12/17 17:15 97.8 76 16 103/55 (71) 95 Nasal Cannula 2 08/12/17 17:00 78 16 100/58 (72) 96 Nasal Cannula 2 08/12/17 16:00 73 16 99/57 (71) 96 Nasal Cannula 2 08/12/17 15:30 97.6 74 16 100/60 (73) 96 Nasal Cannula 2 08/12/17 15:16 15 08/12/17 15:15 75 15 98/57 (71) 95 Nasal Cannula 2 08/12/17 15:00 97.1 77 15 101/59 (73) 95 Nasal Cannula 2 08/12/17 14:45 76 15 100/52 (68) 94 Nasal Cannula 2 08/12/17 14:30 96.9 78 15 102/55 (71) 94 Nasal Cannula 2 08/12/17 14:15 78 15 103/56 (72) 94 Nasal Cannula 2 08/12/17 14:05 96.7 80 17 108/58 (75) 100 Nasal Cannula 3 08/14/17 07:00 Intake Total 50 ml Balance 50 ml (Merle Daniel) Review of Systems Constitutional: DENIES: Fever Respiratory: DENIES: Shortness of breath Cardiovascular: DENIES: Chest pain (Merle Daniel) Physical Exam Mr. Elena is alert, sitting up in chair with LSO brace. Following commands appropriately. Surgical wound replaced with adhesive dressing. LUCILLE drain intact with moderate drainage. Cranial nerve: pupils equal, round and reactive to light. Facial motor are normal and symmetrical. Neck is soft and supple Motor: moving all major muscle groups of lower extremities well. (Merle Daniel) Medications Current Medications Current Medications Medications (Trade) Dose Ordered Sig/Yakelin Route PRN Reason Start Time Stop Time Status Last Admin Dose Admin Lactated Ringer's 1,000 ml @ 30 mls/hr Q24H PRN IV SEE LABEL COMMENTS 08/12/17 07:15 08/15/17 07:14 08/12/17 08:00 Sodium Chloride 500 ml @ 30 mls/hr [id number] PRN IV SEE LABEL COMMENTS 08/12/17 07:15 08/15/17 07:14 Metoprolol Tartrate (Lopressor) 25 mg ELECTRO OPTICS ENGINEER PRN PO SEE LABEL COMMENTS 08/12/17 07:15 08/15/17 07:14 Povidone Iodine (Betadine 5% Antisepsis Kit) 1 applic ELECTRO OPTICS ENGINEER PRN EACH NARE SEE LABEL COMMENTS 08/12/17 07:15 08/15/17 07:14 08/12/17 08:00 Chlorhexidine Gluconate (Chlorhexidine 2% Cloth) 3 pack ELECTRO OPTICS ENGINEER PRN TOPICAL SEE LABEL COMMENTS 08/12/17 07:15 08/15/17 07:14 08/12/17 07:30 Insulin Human Regular (NovoLIN R INJ) See Protocol Table ... ELECTRO OPTICS ENGINEER PRN SQ SEE PROTOCOL TABLE 08/12/17 07:15 08/15/17 07:14 Potassium Chloride/Sodium Chloride 1,000 ml @ 100 mls/hr Q10H IV 08/12/17 14:33 08/13/17 08:42 IV Flush (NS Flush) 2 ml UNSCH PRN IVF FLUSH AFTER USING IV ACCESS 08/12/17 14:45 IV Flush (NS Flush) 2 ml BID IVF 08/12/17 21:00 08/13/17 08:35 Pantoprazole Sodium (Protonix Inj) 40 mg DAILY IVP 08/13/17 09:00 08/13/17 08:35 Morphine Sulfate (Morphine Inj) 2 mg Q2H PRN IV PUSH PAIN SCALE 1 TO 6 08/12/17 15:00 Morphine Sulfate (Morphine Inj) 4 mg Q2H PRN IV PUSH PAIN SCALE 7 TO 10 08/12/17 15:00 08/13/17 08:39 Acetaminophen (Tylenol) 650 mg Q4H PRN PO TEMPERATURE > 101.5 F 08/12/17 15:00 Naloxone HCl (Narcan Inj) 0.4 mg UNSCH PRN IV PUSH RESPIRATORY RATE LESS THAN 10 08/12/17 14:45 Diphenhydramine HCl (Benadryl Inj) 25 mg Q6H PRN IV PUSH ITCHING 08/12/17 14:45 Hydromorphone HCl (Dilaudid LICSW Inj) 6 mg UNSCH IV 08/12/17 14:45 08/13/17 00:35 LICSW Dosage Infused (Pha) 1 Q8HR .XX 08/12/17 22:00 08/13/17 05:57 Miscellaneous Information ALL NURSING DEPARTME... UNSCH PRN .XX SEE LABEL COMMENTS 08/12/17 14:05 08/13/17 14:04 Cholecalciferol (Vitamin D3) 1,000 units DAILY PO 08/13/17 09:00 08/13/17 08:35 Furosemide (Lasix) 10 mg DAILY PO 08/13/17 09:00 08/13/17 08:34 Lisinopril (Prinivil) 5 mg DAILY PO 08/13/17 09:00 08/13/17 08:33 Temazepam (Restoril) 7.5 mg HS PRN PO INSOMNIA 08/12/17 21:00 08/12/17 21:50 Tramadol HCl (Ultram) 50 mg HS PO 08/12/17 21:00 08/12/17 21:29 Vitamin B Complex/ Vitamin C (Allbee C) 1 tab DAILY PO 08/13/17 09:00 08/13/17 08:36 Multivitamins (Theragran) 1 tab DAILY PO 08/13/17 09:00 08/13/17 08:36 Atorvastatin Calcium (Lipitor) 20 mg DAILY PO 08/13/17 09:00 08/13/17 08:34 Vitamin E (Vitamin E) 400 units DAILY PO 08/13/17 09:00 08/13/17 08:33 Miscellaneous (Pill Splitter) 1 ea UNSCH PRN OTHER SEE LABEL COMMENTS 08/12/17 15:00 Thiamine HCl (Vitamin B1) 100 mg DAILY PO 08/13/17 09:00 08/13/17 08:34 Folic Acid (Folate) 1 mg DAILY PO 08/13/17 09:00 08/13/17 08:34 Flumazenil (Romazicon Inj) 0.2 mg Q1M PRN IV PUSH SEE LABEL COMMENTS 08/12/17 17:30 Lorazepam (Ativan) 1 mg Q4H PRN PO CIWA 8 - 10 08/12/17 17:30 Lorazepam (Ativan Inj) 1 mg Q4H PRN IV PUSH CIWA 8 - 10 08/12/17 17:30 Lorazepam (Ativan) 2 mg Q2H PRN PO CIWA 11-14 08/12/17 17:30 Lorazepam (Ativan Inj) 2 mg Q2H PRN IV PUSH CIWA 11-14 08/12/17 17:30 Lorazepam (Ativan Inj) 2 mg Q1H PRN IV PUSH CIWA 15-20 08/12/17 17:30 Lorazepam (Ativan Inj) 2 mg Q15M PRN IV PUSH CIWA > 20 08/12/17 17:30 Haloperidol Lactate (Haldol Inj) 2 mg Q15M PRN IM SEE LABEL COMMENTS 08/12/17 17:30 Nicotine (Habitrol 7 Mg Patch.24 Hr) 1 patch DAILY T-DERMAL 08/13/17 09:00 08/13/17 08:38 Miscellaneous Information 1 DAILY T-DERMAL 08/13/17 09:00 08/13/17 08:42 Albuterol/ Ipratropium (Duoneb Neb) 1 ampule Q4HR NEB PRN NEB SHORTNESS OF BREATH 08/12/17 17:30 Guaifenesin (Mucinex Er) 600 mg BID PO 08/12/17 21:00 08/13/17 08:36 (Merle Daniel) Medical Decision Making MDM Remarks 72 y/o male s/p L5-S1 laminectomy, interbody arthrodesis using PEEK cage and autologous bone graft, L5-S1 instrumental fixation using transpedicular screws and rods, L5-S1 posterolateral fusion using autologous bone graft and demineralized bone matrix on microsurgical dissection 08/12/17 (Merle Daniel) Plan Plan Remarks cont LICSW for pain control, PT, cont mobilization, LSO when out of bed cont SCDs and TEDs for DVT prophylaxis cont LUCILLE draining to suction today, dc mejia catheter IS every hour serial neuro checks medical mgt following, appreciate assistance (Merle Daniel) Attending Statement The exam, history, and the medical decision-making described in the above note were completed with the assistance of the mid-level provider. I reviewed and agree with the findings presented. I attest that I had a [id number] encounter with the patient on the same day, and personally performed and documented my assessment and findings in the medical record. (Andrew Davila MD) Merle Daniel Aug 13, 2017 11:48 Andrew Davila MD Aug 13, 2017 13:15
[2017-08-13 14:20] LABS: HEMOGLOBIN A1a 1.2 %; HEMOGLOBIN A1b 0.7 %; HEMOGLOBIN Ao 86.4 %; HEMOGLOBIN F 1.1 %; HEMOGLOBIN LA1C 1.9 %; HEMOGLOBIN P3 3.3 %
--- NOTE | 2017-08-13 14:47 | HHI.PR ---
Subjective Remarks Mr. Elena is a 72 year-old male who presented with intractable mechanical back pain and caroline evidence of lower extremity radiculopathy. He has history of a prior L3-L5 posterior instrumented fusion. He has developed severe adjacent level degenerative disk disease with a large disk herniation at L5-S1. He failed maximum nonsurgical management including multiple modalities of conservative treatment as well as pain management interventions by an interventional pain specialist. The patient has undergone a previous surgical procedure. A redo surgical decompression and arthrodhesis were indicated as a last resort. We have been asked to see the patient regarding help with medical management. Patient has a extensive medical history of hypertension hyperlipidemia tobacco COPD alcohol abuse and marijuana abuse as well as bladder issues We'll make sure that that placed the patient on CIWA protocol I discussed with the patient and Dr. Davila 08-13 seen sitting in chair states he has some back pain denies any nausea or vomiting at this time denies any tremors Objective Vitals Vital Signs Date Time Temp Pulse Resp B/P (MAP) Pulse Ox O2 Delivery O2 Flow Rate FiO2 08/13/17 14:00 18 08/13/17 12:02 108/60 (76) 08/13/17 08:00 97.7 99 18 109/61 (77) 99 08/13/17 05:57 20 08/13/17 05:37 98.0 90 20 110/58 (75) 96 08/13/17 01:10 20 08/13/17 00:36 97.9 94 20 113/64 (80) 98 08/13/17 00:35 20 08/12/17 22:56 20 08/12/17 21:27 97.4 80 20 109/66 (80) 95 08/12/17 17:43 97.5 95 18 117/74 (88) 98 08/12/17 17:15 97.8 76 16 103/55 (71) 95 Nasal Cannula 2 08/12/17 17:00 78 16 100/58 (72) 96 Nasal Cannula 2 08/12/17 16:00 73 16 99/57 (71) 96 Nasal Cannula 2 08/12/17 15:30 97.6 74 16 100/60 (73) 96 Nasal Cannula 2 08/12/17 15:16 15 08/12/17 15:15 75 15 98/57 (71) 95 Nasal Cannula 2 08/12/17 15:00 97.1 77 15 101/59 (73) 95 Nasal Cannula 2 08/12/17 14:45 76 15 100/52 (68) 94 Nasal Cannula 2 I/O 08/12/17 08/12/17 08/12/17 08/13/17 08/13/17 08/13/17 07:00 15:00 23:00 07:00 15:00 23:00 Intake Total 2200 ml 867 ml 640 ml 50 ml Output Total 1100 ml 390 ml 455 ml Balance 1100 ml 477 ml 185 ml 50 ml Intake IV Total 867 ml 640 ml 50 ml Other 2200 ml Output Urine Total 850 ml 350 ml 425 ml Drainage Total 40 ml 30 ml Estimated Blood Loss 250 ml Result Diagram: [id number]/13/1791408/[id number]/17914 Other Results Laboratory Tests Test 08/12/17 07:50 08/13/17 09:15 Prothrombin Time 11.4 SEC Prothromb Time International Ratio 1.0 RATIO Activated Partial Thromboplast Time 37.1 SEC White Blood Count 13.5 TH/MM3 Red Blood Count 3.32 MIL/MM3 Hemoglobin 11.1 GM/DL Hematocrit 32.8 % Mean Corpuscular Volume 98.5 FL Mean Corpuscular Hemoglobin 33.2 PG Mean Corpuscular Hemoglobin Concent 33.7 % Red Cell Distribution Width 13.3 % Platelet Count 89 TH/MM3 Mean Platelet Volume 10.0 FL Neutrophils (%) (Auto) 85.9 % Lymphocytes (%) (Auto) 6.9 % Monocytes (%) (Auto) 7.1 % Eosinophils (%) (Auto) 0.0 % Basophils (%) (Auto) 0.1 % Neutrophils # (Auto) 11.6 TH/MM3 Lymphocytes # (Auto) 0.9 TH/MM3 Monocytes # (Auto) 1.0 TH/MM3 Eosinophils # (Auto) 0.0 TH/MM3 Basophils # (Auto) 0.0 TH/MM3 CBC Comment AUTO DIFF Differential Comment AUTO DIFF CONFIRMED Blood Urea Nitrogen 16 MG/DL Creatinine 1.17 MG/DL Random Glucose 109 MG/DL Total Protein 5.7 GM/DL Albumin 3.1 GM/DL Calcium Level 8.3 MG/DL Phosphorus Level 3.3 MG/DL Magnesium Level 2.1 MG/DL Alkaline Phosphatase 80 U/L Aspartate Amino Transf (AST/SGOT) 50 U/L Alanine Aminotransferase (ALT/SGPT) 20 U/L Total Bilirubin 0.5 MG/DL Sodium Level 139 MEQ/L Potassium Level 4.8 MEQ/L Chloride Level 107 MEQ/L Carbon Dioxide Level 25.2 MEQ/L Anion Gap 7 MEQ/L Estimat Glomerular Filtration Rate 61 ML/MIN Free Thyroxine 1.04 NG/DL Thyroid Stimulating Hormone 3rd Gen 0.707 uIU/ML Imaging Last Impressions Lumbar Spine X-Ray 08/12/17 0000 Signed Impressions: Service Date/Time: Saturday, August 12, 2017 10:00 - CONCLUSION: Spot fluoroscopic image of the lumbar spine, as above. Ilan Michelle MD Objective Remarks GENERAL: This is a well-nourished, well-developed patient, in no apparent distress. SKIN: No rashes, ecchymoses or lesions. Cool and dry. HEAD: Atraumatic. Normocephalic. No temporal or scalp tenderness. EYES: Pupils equal round and reactive. Extraocular motions intact. No scleral icterus. No injection or drainage. ENT: Nose without bleeding, purulent drainage or septal hematoma. Throat without erythema, tonsillar hypertrophy or exudate. Uvula midline. Airway patent. Tongue is midline NECK: Trachea midline. No JVD or lymphadenopathy. Supple, nontender, no meningeal signs. CARDIOVASCULAR: Regular rate and rhythm without murmurs, gallops, or rubs. S1- S2 no S3 or S4 RESPIRATORY: Clear to auscultation. Breath sounds equal bilaterally. No wheezes , rales, or rhonchi. GASTROINTESTINAL: Abdomen soft, non-tender, nondistended. No hepato-splenomegaly , or palpable masses. No guarding. MUSCULOSKELETAL: Extremities without clubbing, cyanosis, or edema. No joint tenderness, effusion, or edema noted. No calf tenderness. Negative Homans sign bilaterally. NEUROLOGICAL: Awake and alert. Cranial nerves II through XII intact. Motor and sensory grossly within normal limits. Five out of 5 muscle strength in all muscle groups. Normal speech. Insight and judgment is good; mood and behaviors appropriate Procedures Mr. Elena s/p L5-S1 laminectomy, interbody arthrodesis using PEEK cage and autologous bone graft, L5-S1 instrumental fixation using transpedicular screws and rods, L5-S1 posterolateral fusion using autologous bone graft and demineralized bone matrix. Microsurgical dissection on Aug 12, 2017 for lumbar spondylosis and disc herniation. Medications and IVs Current Medications Acetaminophen 100 ml @ As Directed STK-MED ONCE IV ; Start 08/12/17 at 06:54; Stop 08/12/17 at 06:55; Status DC Lactated Ringer's 1,000 ml @ 30 mls/hr Q24H PRN IV SEE LABEL COMMENTS Last administered on 08/12/17 08:00; Start 08/12/17 at 07:15; Stop 08/15/17 at 07 :14 Sodium Chloride 500 ml @ 30 mls/hr [id number] PRN IV SEE LABEL COMMENTS; Start at 07:15; Stop 08/15/17 at 07:14 Metoprolol Tartrate (Lopressor) 25 mg PORTER BATH PRN PO SEE LABEL COMMENTS; Start 08/12/17 at 07:15; Stop 08/15/17 at 07:14 Povidone Iodine (Betadine 5% Antisepsis Kit) 1 applic PORTER BATH PRN EACH NARE SEE LABEL COMMENTS Last administered on 08/12/17 08:00; Start 08/12/17 at 07: 15; Stop 08/15/17 at 07:14 Chlorhexidine Gluconate (Chlorhexidine 2% Cloth) 3 pack PORTER BATH PRN TOPICAL SEE LABEL COMMENTS Last administered on 08/12/17 07:30; Start 08/12/17 at 07: 15; Stop 08/15/17 at 07:14 Insulin Human Regular (NovoLIN R INJ) See Protocol Table ... PORTER BATH PRN SQ SEE PROTOCOL TABLE; Start 08/12/17 at 07:15; Stop 08/15/17 at 07:14 Sodium Chloride 1,000 ml @ 30 mls/hr Q24H IV ; Start 08/12/17 at 07:15; Stop 08/13/17 at 07:14; Status DC Vancomycin HCl 1000 mg/Sodium Chloride 250 ml @ 250 mls/hr PORTER BATH IV ; Start 08/12/17 at 07:15; Stop 08/13/17 at 07:14; Status DC Heparin Sodium (Porcine) (Heparin Inj) 30,000 units STK-MED ONCE .ROUTE ; Start 08/12/17 at 08:07; Stop 08/12/17 at 08:08; Status DC Thrombin (Thrombin Top Soln) 10,000 units STK-MED ONCE .ROUTE Last administered on 08/12/17 11:00; Start 08/12/17 at 08:08; Stop 08/12/17 at 08 :09; Status DC Cefazolin Sodium/ Dextrose 50 ml @ As Directed STK-MED ONCE .ROUTE Last administered on 08/12/17 10:07; Start 08/12/17 at 08:08; Stop 08/12/17 at 08 :09; Status DC Gelatin (Gelfoam 100 Top) 1 foam STK-MED ONCE .ROUTE Last administered on 08/12 11:00; Start 08/12/17 at 08:08; Stop 08/12/17 at 08:09; Status DC Gentamicin Sulfate (Gentamicin Inj) 240 mg STK-MED ONCE .ROUTE Last administered on 08/12/17 11:00; Start 08/12/17 at 08:08; Stop 08/12/17 at 08 :09; Status DC Bupivacaine HCl (Marcaine Pf 0.5% Inj) 30 ml STK-MED ONCE .ROUTE ; Start at 08:09; Stop 08/12/17 at 08:10; Status DC Vancomycin HCl (Vancomycin Inj) 1,000 mg STK-MED ONCE .ROUTE Last administered on 08/12/17 11:00; Start 08/12/17 at 08:12; Stop 08/12/17 at 08:13; Status DC Bupivacaine HCl (Marcaine Pf 0.5% Inj) 30 ml STK-MED ONCE .ROUTE ; Start at 08:12; Stop 08/12/17 at 08:13; Status DC Propofol 150 ml @ As Directed STK-MED ONCE .ROUTE ; Start 08/12/17 at 08:31; Stop 08/12/17 at 08:32; Status DC Famotidine (Pepcid Inj) 20 mg STK-MED ONCE .ROUTE ; Start 08/12/17 at 08:31; Stop 08/12/17 at 08:32; Status DC Bupivacaine HCl/ Epinephrine Bitart (Sensorcaine-Epi 0.5% 50 ml Inj) 50 ml STK- MED ONCE .ROUTE Last administered on 08/12/17 11:45; Start 08/12/17 at 10:10 ; Stop 08/12/17 at 10:11; Status DC Meperidine HCl (*DEMEROL INJ PERIprocedural ONLY) 25 mg STK-MED ONCE .ROUTE Last administered on 08/12/17 14:25; Start 08/12/17 at 14:25; Stop 08/12/17 at 14:26; Status DC Potassium Chloride/Sodium Chloride 1,000 ml @ 100 mls/hr Q10H IV Last administered on 08/13/17 08:42; Start 08/12/17 at 14:33 IV Flush (NS Flush) 2 ml UNSCH PRN IVF FLUSH AFTER USING IV ACCESS; Start 08/19 at 14:45 IV Flush (NS Flush) 2 ml BID IVF Last administered on 08/13/17 08:35; Start 08/12/17 at 21:00 Cefazolin Sodium/ Dextrose 50 ml @ 100 mls/hr Q8H IV Last administered on 08:40; Start 08/12/17 at 17:00; Stop 08/13/17 at 09:29; Status DC Pantoprazole Sodium (Protonix Inj) 40 mg DAILY IVP Last administered on 08:35; Start 08/13/17 at 09:00 Morphine Sulfate (Morphine Inj) 2 mg Q2H PRN IV PUSH PAIN SCALE 1 TO 6; Start 08/12/17 at 15:00 Morphine Sulfate (Morphine Inj) 4 mg Q2H PRN IV PUSH PAIN SCALE 7 TO 10 Last administered on 08/13/17 08:39; Start 08/12/17 at 15:00 Acetaminophen (Tylenol) 650 mg Q4H PRN PO TEMPERATURE > 101.5 F; Start at 15:00 Naloxone HCl (Narcan Inj) 0.4 mg UNSCH PRN IV PUSH RESPIRATORY RATE LESS THAN 10; Start 08/12/17 at 14:45 Diphenhydramine HCl (Benadryl Inj) 25 mg Q6H PRN IV PUSH ITCHING; Start at 14:45 Hydromorphone HCl (Dilaudid SLIP INJECTOR AND APPLICATOR Inj) 6 mg UNSCH IV Last administered on 00:35; Start 08/12/17 at 14:45 SLIP INJECTOR AND APPLICATOR Dosage Infused (Pha) 1 Q8HR .XX Last administered on 08/13/17 14:00; Start 08/12/17 at 22:00 Miscellaneous Information ALL NURSING DEPARTME... UNSCH PRN .XX SEE LABEL COMMENTS; Start 08/12/17 at 14:05; Stop 08/13/17 at 14:04; Status DC Cholecalciferol (Vitamin D3) 1,000 units DAILY PO Last administered on 08:35; Start 08/13/17 at 09:00 Furosemide (Lasix) 10 mg DAILY PO Last administered on 08/13/17 08:34; Start 08/13/17 at 09:00 Lisinopril (Prinivil) 5 mg DAILY PO Last administered on 08/13/17 08:33; Start 08/13/17 at 09:00 Temazepam (Restoril) 7.5 mg HS PRN PO INSOMNIA Last administered on 08/12/17 21:50; Start 08/12/17 at 21:00 Tramadol HCl (Ultram) 50 mg HS PO Last administered on 08/12/17 21:29; Start 08/12/17 at 21:00 Vitamin B Complex/ Vitamin C (Allbee C) 1 tab DAILY PO Last administered on 08:36; Start 08/13/17 at 09:00 Non-Formulary Medication 10 mg DAILY PO ; Start 08/13/17 at 09:00; Stop at 09:00; Status DC Multivitamins (Theragran) 1 tab DAILY PO Last administered on 08/13/17 08:36 ; Start 08/13/17 at 09:00 Atorvastatin Calcium (Lipitor) 20 mg DAILY PO Last administered on 08/13/17 08:34; Start 08/13/17 at 09:00 Vitamin E (Vitamin E) 400 units DAILY PO Last administered on 08/13/17 08:33 ; Start 08/13/17 at 09:00 Miscellaneous (Pill Splitter) 1 ea UNSCH PRN OTHER SEE LABEL COMMENTS; Start 08/12/17 at 15:00 Thiamine HCl (Vitamin B1) 100 mg DAILY PO Last administered on 08/13/17 08:34 ; Start 08/13/17 at 09:00 Folic Acid (Folate) 1 mg DAILY PO Last administered on 08/13/17 08:34; Start 08/13/17 at 09:00 Flumazenil (Romazicon Inj) 0.2 mg Q1M PRN IV PUSH SEE LABEL COMMENTS; Start at 17:30 Lorazepam (Ativan) 1 mg Q4H PRN PO CIWA 8 - 10; Start 08/12/17 at 17:30 Lorazepam (Ativan Inj) 1 mg Q4H PRN IV PUSH CIWA 8 - 10; Start 08/12/17 at 17: 30 Lorazepam (Ativan) 2 mg Q2H PRN PO CIWA 11-14; Start 08/12/17 at 17:30 Lorazepam (Ativan Inj) 2 mg Q2H PRN IV PUSH CIWA 11-14; Start 08/12/17 at 17: 30 Lorazepam (Ativan Inj) 2 mg Q1H PRN IV PUSH CIWA 15-20; Start 08/12/17 at 17: 30 Lorazepam (Ativan Inj) 2 mg Q15M PRN IV PUSH CIWA > 20; Start 08/12/17 at 17: 30 Haloperidol Lactate (Haldol Inj) 2 mg Q15M PRN IM SEE LABEL COMMENTS; Start at 17:30 Nicotine (Habitrol 7 Mg Patch.24 Hr) 1 patch DAILY T-DERMAL Last administered on 08/13/17 08:38; Start 08/13/17 at 09:00 Nicotine (Habitrol 7 Mg Patch.24 Hr) 1 patch ONCE ONCE T-DERMAL Last administered on 08/12/17 18:46; Start 08/12/17 at 17:30; Stop 08/12/17 at 17 :47; Status DC Miscellaneous Information 1 DAILY T-DERMAL Last administered on 08/13/17 08: 42; Start 08/13/17 at 09:00 Albuterol/ Ipratropium (Duoneb Neb) 1 ampule Q4HR NEB PRN NEB SHORTNESS OF BREATH; Start 08/12/17 at 17:30 Guaifenesin (Mucinex Er) 600 mg BID PO Last administered on 08/13/17 08:36; Start 08/12/17 at 21:00 Urinary Catheter: No Vascular Central Line Catheter: No A/P Problem List: (1) Hypertension ICD Code: I10 - Essential (primary) hypertension (2) Hyperlipidemia ICD Code: E78.5 - Hyperlipidemia, unspecified (3) COPD (chronic obstructive pulmonary disease) ICD Code: J44.9 - Chronic obstructive pulmonary disease, unspecified (4) Tobacco abuse ICD Code: Z72.0 - Tobacco use (5) Alcohol abuse ICD Code: F10.10 - Alcohol abuse, uncomplicated (6) Osteoarthritis ICD Code: M19.90 - Unspecified osteoarthritis, unspecified site (7) Status post lumbar spinal fusion ICD Code: Z98.1 - Arthrodesis status Status: Acute Assessment and Plan Status post lumbar surgery pain control to Dr. Davila. Alcohol abuse continue on CIWA protocol continue on multivitamin thiamine and folic acid Tobacco abuse NicoDerm patch and duo nebs as needed COPD duo nebs as needed Hypertension home medications hyperlipidemia home medications LEUKOCYTOSIS- AM LABS ANEMIA- MONITOR THROMBOCYTOPENIA- SUSPECT DUE TO ALCOHOL ABUSE- AM LABS Pain control per Dr. Giovanni Bernard labs Physical therapy and occupational therapy as able Discharge Planning ONCE CLEARED BY NEUROSURGERY AM LABS Danny Marin DO Aug 13, 2017 14:47
[2017-08-13] MEDS: traMADol HCL 50 MG TAB PO SCH (21:12)
[2017-08-13] MEDS ORDERED: SODIUM CHLOR 0.9% 250 ML INJ 250 ML IV ONE (21:15)
[2017-08-13] MEDS: TEMAZEPAM 7.5 MG CAP PO PRN (23:26)
[2017-08-14] VITALS (8 sets, daily range): BP systolic 97–133; BP diastolic 56–73; PULSE 77–105; RESP 18; TEMP 97.2–99.8; O2SAT 92–98
[2017-08-14] MEDS: MORPHINE SULFATE 4 MG/ML INJ IV PUSH PRN ×6 (05:14→21:10)
[2017-08-14] MEDS: NS + KCL 20 MEQ INJ 1,000 ML IV SCH (05:15)
[2017-08-14] MEDS: SODIUM CHLORIDE 0.9% FLUSH 5 ML FLUSH IVF SCH ×2 (09:00→21:00)
[2017-08-14] MEDS: FUROSEMIDE 20 MG TAB PO SCH (09:00)
[2017-08-14] MEDS: REMOVE OLD PATCH T-DERMAL SCH (09:00)
[2017-08-14] MEDS: LISINOPRIL 5 MG TAB PO SCH (09:00)
[2017-08-14] MEDS: FOLIC ACID 1 MG TAB PO SCH (09:15)
[2017-08-14] MEDS: ATORVASTATIN 20 MG TAB PO SCH (09:15)
[2017-08-14] MEDS: VITAMIN B COMPLEX/VIT C TAB PO SCH (09:15)
[2017-08-14] MEDS: THIAMINE HCL 100 MG TAB PO SCH (09:15)
[2017-08-14] MEDS: MULTIVITAMIN TAB PO SCH (09:15)
[2017-08-14] MEDS: CHOLECALCIFEROL (VIT D3) 1000 UNIT TAB PO SCH (09:17)
[2017-08-14] MEDS: NICOTINE 7 MG/24 HR PATCH T-DERMAL SCH (09:17)
[2017-08-14] MEDS: VITAMIN E 400 UNIT CAP PO SCH (09:17)
[2017-08-14] MEDS: guaiFENesin E.R. 600 MG TAB PO SCH ×2 (09:18→21:09)
[2017-08-14] MEDS: PANTOPRAZOLE SODIUM 40 MG VIAL IVP SCH (09:18)
[2017-08-14 09:51] LABS: BASOPHIL % 0.1 % (0.0-2.0); EOSINOPHIL % 0.6 % (0.0-4.0); HEMATOCRIT 29.3 % (39.0-51.0); LYMPH % 20.7 % (9.0-44.0); LYMPHOCYTE # 1.5 TH/MM3 (1.0-4.8); MEAN CELL VOLUME 99.9 FL (80.0-100.0); MEAN CORPUSCULAR HEMOGLOBIN 33.8 PG (27.0-34.0); MEAN CORPUSCULAR HGB CONC 33.9 % (32.0-36.0); MONO % 8.9 % (0.0-8.0); NEUT % 69.7 % (16.0-70.0); PLATELET COUNT 61 TH/MM3 (150-450); RED BLOOD COUNT 2.93 MIL/MM3 (4.50-5.90); RED CELL DISTRIBUTION WIDTH 13.3 % (11.6-17.2); WHITE BLOOD COUNT 7.2 TH/MM3 (4.0-11.0)
[2017-08-14 09:57] LABS: HEMO FLAGS AUTO DIFF
[2017-08-14 10:19] LABS: ANION GAP 6 MEQ/L (5-15); AST (GOT) 69 U/L (15-37); BICARBONATE 25.3 MEQ/L (21.0-32.0); BLOOD UREA NITROGEN 14 MG/DL (7-18); CHLORIDE 112 MEQ/L (98-107); GLOMERULAR FILTRATION RATE 81 ML/MIN (>89); POTASSIUM 4.7 MEQ/L (3.5-5.1); SODIUM (NA) 143 MEQ/L (136-145)
[2017-08-14 10:25] LABS: ALKALINE PHOSPHATASE 75 U/L (45-117); ALT (GPT) 23 U/L (12-78); TOTAL BILIRUBIN ADULT 0.5 MG/DL (0.2-1.0)
[2017-08-14] MEDS ORDERED: HYDR-3535 PO (10:30)
[2017-08-14 10:50] LABS: PLATELET ESTIMATE SMEAR LOW (NORMAL); PLATELET MORPHOLOGY NORMAL (NORMAL); SCAN/DIFF AUTO DIFF CONFIRMED
[2017-08-14] MEDS: RESP: ALBUTEROL CONC 2.5 MG/0.5 ML NEB NEB SCH ×2 (12:00→15:28)
--- NOTE | 2017-08-14 12:48 | HHI.NSPN ---
Note Status Status: Progress Note Interval History Interval History Mr. Elena s/p L5-S1 laminectomy, interbody arthrodesis using PEEK cage and autologous bone graft, L5-S1 instrumental fixation using transpedicular screws and rods, L5-S1 posterolateral fusion using autologous bone graft and demineralized bone matrix. Microsurgical dissection on Aug 12, 2017 for lumbar spondylosis and disc herniation. 08/13: sitting up in chair this morning, pain controlled. denies focal weakness in legs. 08/14: PROFESSOR OF CRIMINAL JUSTICE dc'ed. reports minimal to no back pain. noncompliant with LSO, ambulating without brace. Labs, Micro, & Vital Signs Results Date Time Temp Pulse Resp B/P (MAP) Pulse Ox O2 Delivery O2 Flow Rate FiO2 08/14/17 12:34 98.3 86 18 97/56 (70) 98 08/14/17 09:37 97 21 08/14/17 09:25 20 08/14/17 08:00 98.1 77 18 108/58 (75) 98 08/14/17 04:00 98.2 82 18 108/63 (78) 97 08/14/17 00:05 97.2 82 18 112/57 (75) 94 08/13/17 21:15 97.7 79 16 89/52 (64) 96 08/13/17 20:36 97 08/13/17 17:50 104/58 (73) 08/13/17 16:00 98.0 89 18 96 08/13/17 14:00 18 Constitutional Vital Signs Date Time Temp Pulse Resp B/P (MAP) Pulse Ox O2 Delivery O2 Flow Rate FiO2 08/14/17 12:34 98.3 86 18 97/56 (70) 98 08/14/17 09:37 97 21 08/14/17 09:25 20 08/14/17 08:00 98.1 77 18 108/58 (75) 98 08/14/17 04:00 98.2 82 18 108/63 (78) 97 08/14/17 00:05 97.2 82 18 112/57 (75) 94 08/13/17 21:15 97.7 79 16 89/52 (64) 96 08/13/17 20:36 97 08/13/17 17:50 104/58 (73) 08/13/17 16:00 98.0 89 18 96 08/13/17 14:00 18 Review of Systems Constitutional: DENIES: Fever, Chills Respiratory: DENIES: Shortness of breath Cardiovascular: DENIES: Chest pain Musculoskeletal: COMPLAINS OF: Back pain (minimal) Neurologic: DENIES: Headache, Localized weakness, Paresthesias Physical Exam Mr. Elena is alert, sitting up in chair with LSO brace. Following commands appropriately. Surgical wound with Optifoam adhesive dressing. LUCILLE drain intact with moderate serosanguineous drainage currently in bulb. Cranial nerve: pupils equal, round and reactive to light. Facial motor are normal and symmetrical. Neck is soft and supple Motor: moving all major muscle groups of both upper and lower extremities well. Heart: NSR Lungs: CTA b/l Medications Current Medications Current Medications Medications (Trade) Dose Ordered Sig/Yakelin Route PRN Reason Start Time Stop Time Status Last Admin Dose Admin Lactated Ringer's 1,000 ml @ 30 mls/hr Q24H PRN IV SEE LABEL COMMENTS 08/12/17 07:15 08/15/17 07:14 08/12/17 08:00 Sodium Chloride 500 ml @ 30 mls/hr [id number] PRN IV SEE LABEL COMMENTS 08/12/17 07:15 08/15/17 07:14 Metoprolol Tartrate (Lopressor) 25 mg PUBLIC IMPROVEMENT INSPECTOR PRN PO SEE LABEL COMMENTS 08/12/17 07:15 08/15/17 07:14 Povidone Iodine (Betadine 5% Antisepsis Kit) 1 applic PUBLIC IMPROVEMENT INSPECTOR PRN EACH NARE SEE LABEL COMMENTS 08/12/17 07:15 08/15/17 07:14 08/12/17 08:00 Chlorhexidine Gluconate (Chlorhexidine 2% Cloth) 3 pack PUBLIC IMPROVEMENT INSPECTOR PRN TOPICAL SEE LABEL COMMENTS 08/12/17 07:15 08/15/17 07:14 08/12/17 07:30 Insulin Human Regular (NovoLIN R INJ) See Protocol Table ... PUBLIC IMPROVEMENT INSPECTOR PRN SQ SEE PROTOCOL TABLE 08/12/17 07:15 08/15/17 07:14 Potassium Chloride/Sodium Chloride 1,000 ml @ 100 mls/hr Q10H IV 08/12/17 14:33 08/14/17 05:15 IV Flush (NS Flush) 2 ml UNSCH PRN IVF FLUSH AFTER USING IV ACCESS 08/12/17 14:45 IV Flush (NS Flush) 2 ml BID IVF 08/12/17 21:00 08/14/17 09:00 Pantoprazole Sodium (Protonix Inj) 40 mg DAILY IVP 08/13/17 09:00 08/14/17 09:18 Morphine Sulfate (Morphine Inj) 2 mg Q2H PRN IV PUSH PAIN SCALE 1 TO 6 08/12/17 15:00 08/14/17 11:23 Morphine Sulfate (Morphine Inj) 4 mg Q2H PRN IV PUSH PAIN SCALE 7 TO 10 08/12/17 15:00 08/13/17 08:39 Acetaminophen (Tylenol) 650 mg Q4H PRN PO TEMPERATURE > 101.5 F 08/12/17 15:00 Cholecalciferol (Vitamin D3) 1,000 units DAILY PO 08/13/17 09:00 08/14/17 09:17 Furosemide (Lasix) 10 mg DAILY PO 08/13/17 09:00 08/13/17 08:34 Lisinopril (Prinivil) 5 mg DAILY PO 08/13/17 09:00 08/13/17 08:33 Temazepam (Restoril) 7.5 mg HS PRN PO INSOMNIA 08/12/17 21:00 08/13/17 23:26 Tramadol HCl (Ultram) 50 mg HS PO 08/12/17 21:00 08/13/17 21:12 Vitamin B Complex/ Vitamin C (Allbee C) 1 tab DAILY PO 08/13/17 09:00 08/14/17 09:15 Multivitamins (Theragran) 1 tab DAILY PO 08/13/17 09:00 08/14/17 09:15 Atorvastatin Calcium (Lipitor) 20 mg DAILY PO 08/13/17 09:00 08/14/17 09:15 Vitamin E (Vitamin E) 400 units DAILY PO 08/13/17 09:00 08/14/17 09:17 Miscellaneous (Pill Splitter) 1 ea UNSCH PRN OTHER SEE LABEL COMMENTS 08/12/17 15:00 Thiamine HCl (Vitamin B1) 100 mg DAILY PO 08/13/17 09:00 08/14/17 09:15 Folic Acid (Folate) 1 mg DAILY PO 08/13/17 09:00 08/14/17 09:15 Flumazenil (Romazicon Inj) 0.2 mg Q1M PRN IV PUSH SEE LABEL COMMENTS 08/12/17 17:30 Lorazepam (Ativan) 1 mg Q4H PRN PO CIWA 8 - 10 08/12/17 17:30 Lorazepam (Ativan Inj) 1 mg Q4H PRN IV PUSH CIWA 8 - 10 08/12/17 17:30 Lorazepam (Ativan) 2 mg Q2H PRN PO CIWA 11-14 08/12/17 17:30 Lorazepam (Ativan Inj) 2 mg Q2H PRN IV PUSH CIWA 11-14 08/12/17 17:30 Lorazepam (Ativan Inj) 2 mg Q1H PRN IV PUSH CIWA 15-20 08/12/17 17:30 Lorazepam (Ativan Inj) 2 mg Q15M PRN IV PUSH CIWA > 20 08/12/17 17:30 Haloperidol Lactate (Haldol Inj) 2 mg Q15M PRN IM SEE LABEL COMMENTS 08/12/17 17:30 Nicotine (Habitrol 7 Mg Patch.24 Hr) 1 patch DAILY T-DERMAL 08/13/17 09:00 08/14/17 09:17 Miscellaneous Information 1 DAILY T-DERMAL 08/13/17 09:00 08/14/17 09:00 Albuterol/ Ipratropium (Duoneb Neb) 1 ampule Q4HR NEB PRN NEB SHORTNESS OF BREATH 08/12/17 17:30 08/14/17 00:00 Guaifenesin (Mucinex Er) 600 mg BID PO 08/12/17 21:00 08/14/17 09:18 Albuterol Sulfate (Albuterol Concentrated Neb) 2.5 mg Q4HR NEB NEB 08/14/17 12:00 Medical Decision Making MDM Remarks 72 y/o male s/p L5-S1 laminectomy, interbody arthrodesis using PEEK cage and autologous bone graft, L5-S1 instrumental fixation using transpedicular screws and rods, L5-S1 posterolateral fusion using autologous bone graft and demineralized bone matrix on microsurgical dissection 08/12/17 minimal post-operative pain, ambulating, noncompliance to LSO Plan Plan Remarks PROFESSOR OF CRIMINAL JUSTICE dc'ed, cont oral pain medications prn, PT, cont increase mobilization, d/w patient regarding strict donning of his LSO when out of bed, nursing order placed to re-educate as well cont SCDs and TEDs for DVT prophylaxis cont LUCILLE draining to suction, dc tomorrow IS every hour cont serial neuro checks cont medical mgt following, appreciate assistance anticipate dc home tomorrow [facility] with PT f/u in office in 2 weeks Merle Daniel Aug 14, 2017 12:48
--- NOTE | 2017-08-14 13:05 | HHI.FF ---
Face to Face Verification Diagnosis: (1) Status post lumbar spinal fusion Physical Therapy Order: Evaluate and Treat, Improve ambulation Home Health Nursing Order: Medical education Signs/symptoms of disease process Wound care and dressing changes (do not remove optifoam dressing, monitor for any problems) Nursing assessment with vital signs I have seen patient Agata ElenaJr on 08/14/17. My clinical findings support the need for the requested home health care services because: Ltd mobility - disease progression Deconditioned w/ increased weakness High risk of falls I certify that my clinical findings support that this patient is homebound because: Post-op weakness Unsafe to leave home unassisted To [facility] Merle Daniel Aug 14, 2017 13:05 Thony Blackwell Aug 18, 2017 10:27
--- NOTE | 2017-08-14 13:16 | HHI.DCPOC ---
Discharge Care Plan Diagnosis: (1) Status post lumbar spinal fusion (2) Lumbar stenosis Your Health Problems Are: Incision/Drains Exercise Tolerance Loss of Movements Goals to Promote Your Health * To prevent worsening of your condition and complications * To maintain your health at the optimal level Leave the dressing on over the surgical incisions for 1 week. After that you may take the outer dressing off but leave the steri-strips on and let them fall off on their own. No showering until the surgical incision is totally healed. No lifting, bending, pushing, pulling or other strenuous activity. Wear the LSO brace when out of bed. Take the pain medication as prescribed. Avoid taking any medication that contains aspirin or NSAIDs (ibuprofen, naproxen , Motrin, Advil, Naprosyn) for at least a month. Follow up in the office in 2 weeks for a wound check. Directions to Meet Your Goals Take your medications as prescribed Follow your dietary instruction Follow activity as directed Leave the dressing on over the surgical incisions for 1 week. After that you may take the outer dressing off but leave the steri-strips on and let them fall off on their own. No showering until the surgical incision is totally healed. No lifting, bending, pushing, pulling or other strenuous activity. Wear the LSO brace when out of bed. Take the pain medication as prescribed. Avoid taking any medication that contains aspirin or NSAIDs (ibuprofen, naproxen , Motrin, Advil, Naprosyn) for at least a month. Follow up in the office in 2 weeks for a wound check. Keep your appointments as scheduled Take your immunizations and boosters as scheduled If your symptoms worsen call your PCP, if no PCP go to Urgent Care Center or Emergency Room Smoking is Dangerous to Your Health. Avoid second hand smoke Call the 24-hour hour crisis hotline for domestic abuse at Merle Daniel Aug 14, 2017 13:15 Thony Blackwell Aug 18, 2017 10:29
[2017-08-14] MEDS ORDERED: SODIUM PHOSPHATE INJ 15 MMOL in SODIUM CHLORIDE 0.9% INJ 150 ML IV ONE (14:15)
--- NOTE | 2017-08-14 14:24 | HHI.PR ---
Subjective Remarks Patient seen this morning around 11 AM. He reports a nonproductive cough over the past day. Denies any chest pain or shortness of breath. He has been out of bed without his brace. Discussed compliance with patient. Objective Vital Signs Date Time Temp Pulse Resp B/P (MAP) Pulse Ox O2 Delivery O2 Flow Rate FiO2 08/14/17 12:34 98.3 86 18 97/56 (70) 98 08/14/17 09:37 97 21 08/14/17 09:25 20 08/14/17 08:00 98.1 77 18 108/58 (75) 98 08/14/17 04:00 98.2 82 18 108/63 (78) 97 08/14/17 00:05 97.2 82 18 112/57 (75) 94 08/13/17 21:15 97.7 79 16 89/52 (64) 96 08/13/17 20:36 97 08/13/17 17:50 104/58 (73) 08/13/17 16:00 98.0 89 18 96 I/O 08/13/17 08/13/17 08/13/17 08/14/17 08/14/17 08/14/17 06:59 14:59 22:59 06:59 14:59 22:59 Intake Total 640 ml 50 ml 1521 ml 999 ml Output Total 455 ml 50 ml Balance 185 ml 50 ml 1471 ml 999 ml Intake IV Total 640 ml 50 ml 1521 ml 999 ml Output Urine Total 425 ml Drainage Total 30 ml 50 ml # Voids 5 2 2 # Bowel Movements 1 1 Result Diagram: 08/14/1746 08/14/1746 Objective Remarks GENERAL: Patient lying on right side in bed. appears comfortable. SKIN: Warm and dry. HEAD: Normocephalic. EYES: No scleral icterus. No injection or drainage. NECK: Supple, trachea midline. No JVD or lymphadenopathy. CARDIOVASCULAR: Regular rate and rhythm without murmurs, gallops, or rubs. RESPIRATORY: Breath sounds equal bilaterally. No accessory muscle use. GASTROINTESTINAL: Abdomen soft, non-tender, nondistended. MUSCULOSKELETAL: No cyanosis, or edema. BACK: Nontender without obvious deformity. No CVA tenderness. A/P Assessment and Plan ===08/14/17 //Hypophosphatemia. Phosphorus 1.5. Replaced. //Nonproductive cough. Possibly secondary to not smoking recently. We'll check chest x-ray. //Anemia. Hemoglobin 9.9. Slow decrease. Likely dilutional. We'll be discontinuing fluids. No signs of bleeding. Continue to monitor. //Thrombocytopenia. Platelets 61. No signs of bleeding. Continue to monitor. //Status post lumbar surgery pain control to Dr. Davila. //Alcohol abuse continue on CIWA protocol continue on multivitamin thiamine and folic acid //Tobacco abuse NicoDerm patch and duo nebs as needed COPD duo nebs as needed //Hypertension home medications //hyperlipidemia home medications //LEUKOCYTOSIS- AM LABS //ANEMIA- MONITOR //THROMBOCYTOPENIA- SUSPECT DUE TO ALCOHOL ABUSE- AM LABS Physical therapy and occupational therapy as able Discharge Planning Likely discharge tomorrow as per neurosurgery. Martin Navarro MD Aug 14, 2017 14:24
[2017-08-14] MEDS: RESP: ALBUTEROL 2.5 MG/IPRATROPIUM 0.5 MG NEB (PRN) NEB ×3 (15:28→19:37)
--- NOTE | 2017-08-14 16:53 | RADRPT ---
EXAM DATE/TIME: 08/14/2017 16:08 [facility] COMPARISON: SPINE LUMBAR LTD (AP & LAT), August 12, 2017, 10:00. CHEST SINGLE AP, October 26, 2016, 19:34. INDICATIONS : Cough. MEDICAL HISTORY : Hypertension. Chronic obstructive pulmonary disease. SURGICAL HISTORY : neck and back surgeries ENCOUNTER: Initial ACUITY: 2 days PAIN SCORE: 0/10 LOCATION: Bilateral chest FINDINGS: Significant central perihilar increased density with interstitial prominence has developed. Heart is normal in size. There are no pleural effusions. CONCLUSION: Perihilar opacity and interstitial prominence characteristic of acute pulmonary edema. Pankaj Malone MD on August 14, 2017 at 16:50 Board Certified Radiologist. This report was verified electronically.
[2017-08-14] MEDS ORDERED: MAGNESIUM HYDROXIDE SUSP 30 ML CUP PO ONE (18:45)
[2017-08-14] MEDS ORDERED: FUROSEMIDE 20 MG TAB PO ONE (18:45)
[2017-08-14] MEDS ORDERED: DOCUSATE SODIUM 50 MG/SENNA 8.6 MG TAB PO ONE (18:45)
[2017-08-14] MEDS: BENZONATATE 100 MG CAP PO PRN (19:14)
[2017-08-14] MEDS: traMADol HCL 50 MG TAB PO SCH (21:09)
[2017-08-15 01:11] VITALS: BP 116/64; PULSE 103; RESP 18; TEMP 99.1; O2SAT 94
[2017-08-15] MEDS: RESP: ALBUTEROL 2.5 MG/IPRATROPIUM 0.5 MG NEB (PRN) NEB (04:22)
[2017-08-15] MEDS: RESP: ALBUTEROL CONC 2.5 MG/0.5 ML NEB NEB SCH ×6 (04:28→19:54)
[2017-08-15 05:13] VITALS: BP 100/71; PULSE 97; RESP 18; TEMP 100.1; O2SAT 92
[2017-08-15] MEDS: MORPHINE SULFATE 4 MG/ML INJ IV PUSH PRN ×3 (05:47→19:06)
[2017-08-15 08:00] VITALS: BP 90/51; PULSE 87; RESP 18; TEMP 98.2; O2SAT 94
[2017-08-15] MEDS ORDERED: RESP: ALBUTEROL 2.5 MG/3 ML NEB (PRN) ONE (08:27)
[2017-08-15 08:36] LABS: AUTOMATED NEUTROPHIL # 4.5 TH/MM3 (1.8-7.7); BASOPHIL % 0.1 % (0.0-2.0); EOSINOPHIL # 0.1 TH/MM3 (0-0.4); EOSINOPHIL % 1.7 % (0.0-4.0); HEMATOCRIT 27.9 % (39.0-51.0); LYMPH % 17.7 % (9.0-44.0); LYMPHOCYTE # 1.2 TH/MM3 (1.0-4.8); MEAN CELL VOLUME 98.6 FL (80.0-100.0); MEAN CORPUSCULAR HEMOGLOBIN 33.6 PG (27.0-34.0); MEAN CORPUSCULAR HGB CONC 34.1 % (32.0-36.0); MONO % 12.1 % (0.0-8.0); NEUT % 68.4 % (16.0-70.0); PLATELET COUNT 65 TH/MM3 (150-450); RED BLOOD COUNT 2.83 MIL/MM3 (4.50-5.90); RED CELL DISTRIBUTION WIDTH 13.3 % (11.6-17.2); WHITE BLOOD COUNT 6.5 TH/MM3 (4.0-11.0)
[2017-08-15 08:45] LABS: HEMO FLAGS AUTO DIFF
[2017-08-15] MEDS: BENZONATATE 100 MG CAP PO PRN (08:53)
[2017-08-15] MEDS: PANTOPRAZOLE SODIUM 40 MG VIAL IVP SCH (08:55)
[2017-08-15] MEDS: CHOLECALCIFEROL (VIT D3) 1000 UNIT TAB PO SCH (08:55)
[2017-08-15] MEDS: FOLIC ACID 1 MG TAB PO SCH (08:55)
[2017-08-15] MEDS: VITAMIN B COMPLEX/VIT C TAB PO SCH (08:55)
[2017-08-15] MEDS: MULTIVITAMIN TAB PO SCH (08:55)
[2017-08-15] MEDS: THIAMINE HCL 100 MG TAB PO SCH (08:55)
[2017-08-15] MEDS: ATORVASTATIN 20 MG TAB PO SCH (08:55)
[2017-08-15] MEDS: VITAMIN E 400 UNIT CAP PO SCH (08:55)
[2017-08-15] MEDS: LISINOPRIL 5 MG TAB PO SCH (08:55)
[2017-08-15] MEDS: guaiFENesin E.R. 600 MG TAB PO SCH ×2 (08:55→20:25)
[2017-08-15] MEDS: REMOVE OLD PATCH T-DERMAL SCH (08:56)
[2017-08-15] MEDS: NICOTINE 7 MG/24 HR PATCH T-DERMAL SCH (08:56)
[2017-08-15] MEDS: FUROSEMIDE 20 MG TAB PO SCH (08:56)
[2017-08-15] MEDS: SODIUM CHLORIDE 0.9% FLUSH 5 ML FLUSH IVF SCH ×2 (09:00→20:32)
[2017-08-15 09:01] LABS: BICARBONATE 23.4 MEQ/L (21.0-32.0); MAGNESIUM 1.9 MG/DL (1.5-2.5)
[2017-08-15 09:30] LABS: PLATELET ESTIMATE SMEAR LOW (NORMAL); PLATELET MORPHOLOGY NORMAL (NORMAL); SCAN/DIFF AUTO DIFF CONFIRMED
[2017-08-15] MEDS ORDERED: LEVOFLOXACIN 750 MG TAB PO ONE (11:30)
[2017-08-15 12:46] VITALS: BP 125/71; PULSE 89; RESP 18; TEMP 98.6; O2SAT 94
--- NOTE | 2017-08-15 13:09 | RADRPT ---
EXAM DATE/TIME: 08/15/2017 12:15 [facility] COMPARISON: CHEST SINGLE AP, October 26, 2016, 19:34. CHEST SINGLE AP, August 14, 2017, 16:08. INDICATIONS : Evaluate for pneumonia. MEDICAL HISTORY : Smoker. Hypertension. Chronic obstructive pulmonary disease. SURGICAL HISTORY : Fusion, lumbar. Fusion, cervical. ENCOUNTER: Subsequent ACUITY: 2 days PAIN SCORE: 8/10 LOCATION: Bilateral chest FINDINGS: The heart is normal in size. There is diffuse interstitial prominence concerning for congestive failu re. There minimal bilateral effusions. The overall appearance of the parenchyma is similar to previou s exam. The osseous structures are grossly intact. CONCLUSION: Diffuse predominantly interstitial infiltrates concerning for congestive failure. Mp Eason MD on August 15, 2017 at 13:07 Board Certified Radiologist. This report was verified electronically.
--- NOTE | 2017-08-15 15:58 | HHI.NSPN ---
History Chief Complaint: Mild incisional pain. Interval History Mr. Elena s/p L5-S1 laminectomy, interbody arthrodesis using PEEK cage and autologous bone graft, L5-S1 instrumental fixation using transpedicular screws and rods, L5-S1 posterolateral fusion using autologous bone graft and demineralized bone matrix. Microsurgical dissection on Aug 12, 2017 for lumbar spondylosis and disc herniation. 08/13: sitting up in chair this morning, pain controlled. denies focal weakness in legs. 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 reports minimal to no back pain. noncompliant with LSO, ambulating without brace. 08/15: Pt awake and alert. Complains of very mild incisional discomfort. No radiculopathy in LEs. Pt ambulating to bathroom independently. Review of Systems General: Negative for: fever, chills, insomnia Respiratory: Negative for: shortness of breath, cough, sputum Cardiovascular: Negative for: chest pain Gastrointestinal: Negative for: nausea, vomitting, diarrhea, constipation Exam Results Vital Signs Date Time Temp Pulse Resp B/P (MAP) Pulse Ox O2 Delivery O2 Flow Rate FiO2 08/15/17 12:46 98.6 89 18 125/71 (89) 94 08/14/17 09:37 21 08/12/17 17:15 Nasal Cannula 2 Intake and Output 08/15/17 08/15/17 08/16/17 08:00 16:00 00:00 Output Total 70 ml Balance -70 ml Physical Examination Resp: CTA bilaterally Heart; NSR no murmurs Abd: Soft positive bs Skin: No cyanosis or erythema. LUCILLE removed by RN and new bandage in place. Muscle: Moves all 4 extremities well good strength in LEs. Neuro: Pt awake and alert. Follows commands well. Speech clear and appropriate. Lab, Micro, Other Results Last Impressions Chest X-Ray 08/15/17 0000 Signed Impressions: Service Date/Time: Tuesday, August 15, 2017 12:15 - CONCLUSION: Diffuse predominantly interstitial infiltrates concerning for congestive failure. Mp Eason MD Lumbar Spine X-Ray 08/12/17 0000 Signed Impressions: Service Date/Time: Saturday, August 12, 2017 10:00 - CONCLUSION: Spot fluoroscopic image of the lumbar spine, as above. Ilan Michelle MD Laboratory Tests Test 08/14/17 20:24 08/15/17 07:43 B-Type Natriuretic Peptide 614 PG/ML White Blood Count 6.5 TH/MM3 Red Blood Count 2.83 MIL/MM3 Hemoglobin 9.5 GM/DL Hematocrit 27.9 % Mean Corpuscular Volume 98.6 FL Mean Corpuscular Hemoglobin 33.6 PG Mean Corpuscular Hemoglobin Concent 34.1 % Red Cell Distribution Width 13.3 % Platelet Count 65 TH/MM3 Mean Platelet Volume 9.8 FL Neutrophils (%) (Auto) 68.4 % Lymphocytes (%) (Auto) 17.7 % Monocytes (%) (Auto) 12.1 % Eosinophils (%) (Auto) 1.7 % Basophils (%) (Auto) 0.1 % Neutrophils # (Auto) 4.5 TH/MM3 Lymphocytes # (Auto) 1.2 TH/MM3 Monocytes # (Auto) 0.8 TH/MM3 Eosinophils # (Auto) 0.1 TH/MM3 Basophils # (Auto) 0.0 TH/MM3 CBC Comment AUTO DIFF Differential Comment AUTO DIFF CONFIRMED Platelet Estimate LOW Platelet Morphology Comment NORMAL Blood Urea Nitrogen 11 MG/DL Creatinine 0.71 MG/DL Random Glucose 82 MG/DL Albumin 2.3 GM/DL Calcium Level 8.2 MG/DL Phosphorus Level 2.1 MG/DL Magnesium Level 1.9 MG/DL Sodium Level 140 MEQ/L Potassium Level 4.0 MEQ/L Chloride Level 109 MEQ/L Carbon Dioxide Level 23.4 MEQ/L Anion Gap 8 MEQ/L Estimat Glomerular Filtration Rate 109 ML/MIN Medical Decision Making Impression and Plan A: 72 y/o M s/p L5/S1 PLIF. Pt requesting discharge home. P: D/C home with [facility]. F/U with Dr. Davila. Tarik Caba Aug 15, 2017 15:58
[2017-08-15 16:00] VITALS: BP 119/58; PULSE 97; RESP 18; TEMP 98.6; O2SAT 93
--- NOTE | 2017-08-15 17:02 | HHI.PR ---
Subjective Remarks Patient seen this morning around 11 AM. Says he is feeling all right. Says that cough continues, however slightly improved. Objective Vital Signs Date Time Temp Pulse Resp B/P (MAP) Pulse Ox O2 Delivery O2 Flow Rate FiO2 08/15/17 16:00 98.6 97 18 119/58 (78) 93 08/15/17 12:46 98.6 89 18 125/71 (89) 94 08/15/17 12:40 18 08/15/17 08:00 98.2 87 18 90/51 (64) 94 08/15/17 05:13 100.1 97 18 100/71 (81) 92 08/15/17 01:11 99.1 103 18 116/64 (81) 94 08/14/17 20:45 99.8 104 18 129/73 (91) 94 08/14/17 19:38 92 I/O 08/14/17 08/14/17 08/14/17 08/15/17 08/15/17 08/15/17 07:00 15:00 23:00 07:00 15:00 23:00 Intake Total 999 ml 480 ml 150 ml Output Total 30 ml 70 ml Balance 999 ml 480 ml 120 ml -70 ml Intake Oral 480 ml IV Total 999 ml 150 ml Drainage Total 30 ml 70 ml # Voids 2 4 3 # Bowel Movements 1 1 Result Diagram: 08/15/1743 08/15/17 0743 Objective Remarks GENERAL: Patient lying on right side in bed. appears comfortable.exam unchanged from yesterday. SKIN: Warm and dry. HEAD: Normocephalic. EYES: No scleral icterus. No injection or drainage. NECK: Supple, trachea midline. No JVD or lymphadenopathy. CARDIOVASCULAR: Regular rate and rhythm without murmurs, gallops, or rubs. RESPIRATORY: Breath sounds equal bilaterally. No accessory muscle use. GASTROINTESTINAL: Abdomen soft, non-tender, nondistended. MUSCULOSKELETAL: No cyanosis, or edema. BACK: Nontender without obvious deformity. No CVA tenderness. A/P Assessment and Plan ===08/15/17 //Hypophosphatemia. Improved. Phosphorus 2.1. Replaced again //CHF exacerbation. -BNP in the 600s on 08/14. diuresed. -Chest x-ray with bilateral infiltrates. -add fluid restrictions. echo pending. //Nonproductive cough. //possible atypical pneumonia -Chest x-ray yesterday was bilateral interstitial infiltrates, continues today. Due to cough, Started on Levaquin for possible atypical pneumonia //Anemia. Hemoglobin 9.5 from 9.9 yesterday. Overall stable. No signs of bleeding. //Thrombocytopenia. Platelets 65 from 61 yesterday. Improving.. No signs of bleeding. Continue to monitor. //Status post lumbar surgery pain control to Dr. Davila. //New-onset CHF --BNP in the 600s on 08/14. diuresed. -Chest x-ray with bilateral infiltrates. - fluid restrictions. echo pending. //Nonproductive cough //Possible atypical pneumonia -Treatment as above. //constipation. Laxatives ordered. Discussed with nursing //Alcohol abuse continue on CIWA protocol continue on multivitamin thiamine and folic acid //Tobacco abuse NicoDerm patch and duo nebs as needed COPD duo nebs as needed //Hypertension home medications //hyperlipidemia home medications //LEUKOCYTOSIS- AM LABS //ANEMIA- MONITOR //THROMBOCYTOPENIA- SUSPECT DUE TO ALCOHOL ABUSE- AM LABS Physical therapy and occupational therapy as able Discharge Planning holding discharge pending echocardiogram. Martin Navarro MD Aug 15, 2017 17:02
[2017-08-15] MEDS ORDERED: POTASSIUM PHOSPHATE/SODIUM PHOSPHATE 250 MG TAB PO ONE (17:15)
[2017-08-15] MEDS ORDERED: MAGNESIUM HYDROXIDE SUSP 30 ML CUP PO ONE (17:15)
[2017-08-15] MEDS ORDERED: DOCUSATE SODIUM 50 MG/SENNA 8.6 MG TAB PO ONE (17:15)
--- NOTE | 2017-08-15 20:05 | ECHRPT ---
Indication: SYNCOPE CONCLUSIONS The left ventricular systolic function is normal with an estimated ejection fraction in the range of 55-60%. There is trace tricuspid valve regurgitation. BP: 162 / 87 HR: 77 Rhythm: MEASUREMENTS (Male / Female) Normal Values Technical Quality:Technically difficult study 2D ECHO LV Diastolic Diameter PLAX 4.0 cm 4.2 - 5.9 / 3.9 - 5.3 cm LV Systolic Diameter PLAX 3.2 cm IVS Diastolic Thickness 1.2 cm 0.6 - 1.0 / 0.6 - 0.9 cm LVPW Diastolic Thickness 0.7 cm 0.6 - 1.0 / 0.6 - 0.9 cm LV Relative Wall Thickness 0.5 RV Internal Dim ED PLAX 1.9 cm LA Systolic Diameter LX 3.2 cm 3.0 - 4.0 / 2.7 - 3.8 cm DOPPLER Mitral E Point Velocity 81.9 cm/s Mitral A Point Velocity 70.1 cm/s Mitral E to A Ratio 1.2 TR Peak Velocity 152.0 cm/s TR Peak Gradient 9.2 mmHg Right Atrial Pressure 10.0 mmHg Pulmonary Artery Systolic Pressu 19.2 mmHg Right Ventricular Systolic Press 19.2 mmHg FINDINGS LEFT VENTRICLE Normal left ventricular size. Wall thickness is normal. The left ventricular systolic function is normal with an estimated ejection fraction in the range of 55-60%. No regional wall motion abnormalities are present. RIGHT VENTRICLE Right ventricle is grossly normal LEFT ATRIUM The left atrial size is normal. RIGHT ATRIUM The right atrial size is normal. ATRIAL SEPTUM Normal atrial septal thickness. AORTA The aortic root and proximal ascending aorta are normal in size on limited imaging. MITRAL VALVE Grossly normal mitral valve. No mitral valve stenosis. No mitral valve regurgitation. AORTIC VALVE The aortic valve is not well visualized. No aortic valve regurgitation. No aortic valve stenosis. TRICUSPID VALVE The tricuspid valve is not well visualized. There is trace tricuspid valve regurgitation. The estimated pulmonary arterial pressure is 19.2 mmHg. PULMONARY VALVE The pulmonary valve is not well visualized. VESSELS The inferior vena cava is normal in size. Esteban Sweeney DO (Electronically Signed) Final Date:15 August 2017 20:04
[2017-08-15] MEDS: TEMAZEPAM 7.5 MG CAP PO PRN (20:25)
[2017-08-15] MEDS: traMADol HCL 50 MG TAB PO SCH (20:25)
[2017-08-15 20:49] VITALS: BP 113/54; PULSE 92; RESP 16; TEMP 98.9; O2SAT 92
[2017-08-16 01:07] VITALS: BP 114/62; PULSE 94; RESP 16; TEMP 99.1; O2SAT 94
[2017-08-16] MEDS: RESP: ALBUTEROL CONC 2.5 MG/0.5 ML NEB NEB SCH ×5 (05:05→23:57)
[2017-08-16 05:38] VITALS: BP 133/60; PULSE 107; RESP 18; TEMP 99.5; O2SAT 93
[2017-08-16 08:00] VITALS: BP 108/62; PULSE 95; RESP 26; TEMP 99.1; O2SAT 95
[2017-08-16 08:22] LABS: AUTOMATED NEUTROPHIL # 5.4 TH/MM3 (1.8-7.7); BASOPHIL % 0.2 % (0.0-2.0); EOSINOPHIL # 0.1 TH/MM3 (0-0.4); EOSINOPHIL % 1.7 % (0.0-4.0); HEMATOCRIT 28.9 % (39.0-51.0); LYMPH % 13.1 % (9.0-44.0); MEAN CELL VOLUME 97.8 FL (80.0-100.0); MEAN CORPUSCULAR HEMOGLOBIN 34.3 PG (27.0-34.0); MEAN CORPUSCULAR HGB CONC 35.1 % (32.0-36.0); MONO % 15.5 % (0.0-8.0); NEUT % 69.5 % (16.0-70.0); PLATELET COUNT 77 TH/MM3 (150-450); RED BLOOD COUNT 2.96 MIL/MM3 (4.50-5.90); RED CELL DISTRIBUTION WIDTH 13.1 % (11.6-17.2); WHITE BLOOD COUNT 7.7 TH/MM3 (4.0-11.0)
[2017-08-16 08:26] LABS: HEMO FLAGS AUTO DIFF
[2017-08-16 08:43] LABS: BICARBONATE 18.7 MEQ/L (21.0-32.0); MAGNESIUM 1.8 MG/DL (1.5-2.5); POTASSIUM 3.7 MEQ/L (3.5-5.1)
[2017-08-16] MEDS: REMOVE OLD PATCH T-DERMAL SCH (09:00)
[2017-08-16] MEDS: SODIUM CHLORIDE 0.9% FLUSH 5 ML FLUSH IVF SCH ×2 (09:00→21:00)
[2017-08-16] MEDS: LEVOFLOXACIN 750 MG TAB PO SCH (09:18)
[2017-08-16] MEDS: FUROSEMIDE 20 MG TAB PO SCH (09:18)
[2017-08-16] MEDS: THIAMINE HCL 100 MG TAB PO SCH (09:19)
[2017-08-16] MEDS: MULTIVITAMIN TAB PO SCH (09:19)
[2017-08-16] MEDS: CHOLECALCIFEROL (VIT D3) 1000 UNIT TAB PO SCH (09:19)
[2017-08-16] MEDS: LISINOPRIL 5 MG TAB PO SCH (09:19)
[2017-08-16] MEDS: VITAMIN B COMPLEX/VIT C TAB PO SCH (09:19)
[2017-08-16] MEDS: FOLIC ACID 1 MG TAB PO SCH (09:20)
[2017-08-16] MEDS: VITAMIN E 400 UNIT CAP PO SCH (09:20)
[2017-08-16] MEDS: ATORVASTATIN 20 MG TAB PO SCH (09:20)
[2017-08-16] MEDS: guaiFENesin E.R. 600 MG TAB PO SCH ×2 (09:21→19:54)
[2017-08-16] MEDS: PANTOPRAZOLE SODIUM 40 MG VIAL IVP SCH (09:21)
[2017-08-16] MEDS: MORPHINE SULFATE 4 MG/ML INJ IV PUSH PRN ×2 (09:21→19:56)
--- NOTE | 2017-08-16 09:23 | EKG ---
Date Performed: 08/16/2017 Time Performed: 08:29:13 PTAGE: 72 years EKG: SINUS TACHYCARDIA WITH OCCASIONAL SUPRAVENTRICULAR PREMATURE COMPLEXES ABNORMAL RHYTHM ECG Compared to prior electrocardiogram, rate has increased PREVIOUS TRACING : 10/26/2016 19.45 DOCTOR: Alan Hansen Interpretating Date/Time 08/16/2017 09:23:23
[2017-08-16] MEDS: NICOTINE 7 MG/24 HR PATCH T-DERMAL SCH (09:48)
[2017-08-16 10:08] LABS: OVALOCYTES 1+ (NORMAL); PLATELET ESTIMATE SMEAR LOW (NORMAL); PLATELET MORPHOLOGY ENLARGED (NORMAL); SCAN/DIFF AUTO DIFF CONFIRMED
--- NOTE | 2017-08-16 10:24 | HHI.NSPN ---
History Chief Complaint: Mild incisional pain. Interval History Mr. Elena s/p L5-S1 laminectomy, interbody arthrodesis using PEEK cage and autologous bone graft, L5-S1 instrumental fixation using transpedicular screws and rods, L5-S1 posterolateral fusion using autologous bone graft and demineralized bone matrix. Microsurgical dissection on Aug 12, 2017 for lumbar spondylosis and disc herniation. 08/13: sitting up in chair this morning, pain controlled. denies focal weakness in legs. 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 reports minimal to no back pain. noncompliant with LSO, ambulating without brace. 08/15: Pt awake and alert. Complains of very mild incisional discomfort. No radiculopathy in LEs. Pt ambulating to bathroom independently. 08/16: Patient awake and alert. Sitting up in chair. Patient has very mild incisional discomfort. No radiculopathy in the lower extremities. Patient states that he was seen by cardiology and was told he has congestive heart failure and is undergoing further workup. Review of Systems General: Negative for: fever, chills, insomnia Respiratory: Positive for: cough, sputum Cardiovascular: Negative for: chest pain Gastrointestinal: Negative for: nausea, vomitting, diarrhea, constipation Exam Results Vital Signs Date Time Temp Pulse Resp B/P (MAP) Pulse Ox O2 Delivery O2 Flow Rate FiO2 08/16/17 08:00 99.1 95 26 108/62 (77) 95 08/14/17 09:37 21 08/12/17 17:15 Nasal Cannula 2 Physical Examination Resp: Mild wheezing bilaterally. Heart; NSR no murmurs Abd: Soft positive bs Skin: No cyanosis or erythema. Muscle: Moves all 4 extremities well good strength in LEs. Sitting up in chair with LSO brace on. Neuro: Pt awake and alert. Follows commands well. Speech clear and appropriate. Lab, Micro, Other Results Last Impressions Chest X-Ray 08/15/17 0000 Signed Impressions: Service Date/Time: Tuesday, August 15, 2017 12:15 - CONCLUSION: Diffuse predominantly interstitial infiltrates concerning for congestive failure. Mp Eason MD Lumbar Spine X-Ray 08/12/17 0000 Signed Impressions: Service Date/Time: Saturday, August 12, 2017 10:00 - CONCLUSION: Spot fluoroscopic image of the lumbar spine, as above. Ilan Michelle MD Laboratory Tests Test 08/16/17 07:34 White Blood Count 7.7 TH/MM3 Red Blood Count 2.96 MIL/MM3 Hemoglobin 10.1 GM/DL Hematocrit 28.9 % Mean Corpuscular Volume 97.8 FL Mean Corpuscular Hemoglobin 34.3 PG Mean Corpuscular Hemoglobin Concent 35.1 % Red Cell Distribution Width 13.1 % Platelet Count 77 TH/MM3 Mean Platelet Volume 10.0 FL Neutrophils (%) (Auto) 69.5 % Lymphocytes (%) (Auto) 13.1 % Monocytes (%) (Auto) 15.5 % Eosinophils (%) (Auto) 1.7 % Basophils (%) (Auto) 0.2 % Neutrophils # (Auto) 5.4 TH/MM3 Lymphocytes # (Auto) 1.0 TH/MM3 Monocytes # (Auto) 1.2 TH/MM3 Eosinophils # (Auto) 0.1 TH/MM3 Basophils # (Auto) 0.0 TH/MM3 CBC Comment AUTO DIFF Differential Comment AUTO DIFF CONFIRMED Platelet Estimate LOW Platelet Morphology Comment ENLARGED Ovalocytes 1+ Blood Urea Nitrogen 10 MG/DL Creatinine 0.73 MG/DL Random Glucose 64 MG/DL Albumin 2.2 GM/DL Calcium Level 7.8 MG/DL Phosphorus Level 1.6 MG/DL Magnesium Level 1.8 MG/DL Sodium Level 137 MEQ/L Potassium Level 3.7 MEQ/L Chloride Level 107 MEQ/L Carbon Dioxide Level 18.7 MEQ/L Anion Gap 11 MEQ/L Estimat Glomerular Filtration Rate 106 ML/MIN Medical Decision Making Impression and Plan A: 72 y/o M s/p L5/S1 PLIF. P: D/C home with [facility] when cleared by cardiology and medically stable. F/U with Dr. Davila. Tarik Caba Aug 16, 2017 10:24 am
--- NOTE | 2017-08-16 11:32 | MB ---
cc: LILLIAN RAMOS MD, JEFFREY D. MD GOLDSMITH, ALAN S. M.D. VINAS, FEDERICO C. M.D. DATE OF CONSULTATION: 08/16/17 HISTORY OF PRESENT ILLNESS I have reviewed the patient's hospital records and office records. He was distantly seen by my partner Dr. Day although has no definite cardiac history and had negative stress nuclear an echocardiogram in the past. The patient was admitted because of intractable back pain and radiculopathy. He had had prior lumbar fusion. On 08/12 he underwent repeat lumbar disc surgery. The patient notes chronic moderately severe dyspnea on exertion from COPD and is followed by Dr. Ramos. He also notes very mild pedal edema which he has had for a [id number] and which has been stable and been control with low-dose diuretic. He has no chest pain, palpitations, CVA or claudication or other cardiac history or symptoms. PAST MEDICAL HISTORY 1. Hypertension. 2. Hyperlipidemia. 3. COPD. 4. Kidney stones. 5. Osteoarthritis. 6. Cervical disc surgery. 7. Lumbar surgery. 8. Bilateral cataract surgery. 9. Tonsillectomy. 10. Left total knee replacement. 11. Left ear surgery. ALLERGIES ADHESIVE AND PENICILLIN. SOCIAL HISTORY He is and a prior smoker and drinker and used use marijuana but not presently. The patient was very inactive prior to admission and basically has not been doing much postoperatively. He has had shortness of breath but also has been bringing up purulent sputum with blood in it. He notes no chest pain. EKG was not done and I do not see a preoperative one. Echocardiogram done showed normal left ventricular function without any significant valvular disease. Chest x-ray done portably showed increased interstitial markings. Most recent blood work reveals a potassium of 4.0, creatinine 0.71, albumin of 2.3. His BNP was elevated on 08/14 at 614. TSH level was normal. PT/PTT normal. Hematocrit done 08/15 showed anemia with an hematocrit of 27.9. His platelet count was depressed at 65,000. 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 MEDICATIONS List reviewed. PHYSICAL EXAMINATION VITAL SIGNS: He has run a low-grade fever but afebrile, vital signs stable otherwise. HEENT: There are no xanthelasma and oropharyngeal mucosa normal. CHEST: Decreased breath sounds with mild cruz-expiratory wheezes. HEART: JVD normal. PMI normal. S1, S2. No murmurs or gallops. ABDOMEN: Benign. EXTREMITIES: Show no cyanosis, clubbing or edema. PULSES: Carotids without bruits. Radials 2+. Femorals 2+ without bruits. Pedals 1 to 2+. He is not ambulated. PROBLEMS 1. Shortness of breath - The patient has significant underlying COPD with prior tobacco usage. He is bringing up purulent sputum with blood and has wheezing and I suspect a good part of this is pulmonary. His BNP is elevated but probably nonspecific given his lung disease and normal LV function. 2. COPD. 3. Postoperative state. 4. Hypertension. 5. Hyperlipidemia. 6. Thrombocytopenia. RECOMMENDATIONS 1. I will obtain a stat CT angiogram to rule out pulmonary embolus as this gentleman has been very inactive and is postoperative. 2. DVT prophylaxis per primary service. 3. I would continue his present cardiac regimen as he does not appear fluid overloaded at all. 4. Would recommend consideration of pulmonary and hematologic consultation. I will order a baseline EKG and we will leave followup of the EKG and CT angiogram to the primary service. I will be available if needed. I have given him my card to followup in the office and all questions were answered. Again, I will leave followup to the primary medical service and be available if needed. MD AVTAR Resendiz/CATHLEEN /7:07 AM /10:59 AM
[2017-08-16] MEDS ORDERED: POTASSIUM PHOSPHATE INJ 15 MMOL in SODIUM CHLORIDE 0.9% INJ 150 ML IV ONE (12:00)
[2017-08-16] MEDS ORDERED: IOHEXOL 350 MG/ML 10 ML VIAL (for RAD DIAG) IVCONTRAST ONE (12:20)
--- NOTE | 2017-08-16 12:21 | RADRPT ---
EXAM DATE/TIME: 08/16/2017 11:29 [facility] COMPARISON: No previous studies available for comparison. INDICATIONS : Chest pain. IV CONTRAST: 75 cc Omnipaque 350 (iohexol) IV RADIATION DOSE: 23.27 CTDIvol (mGy) MEDICAL HISTORY : Hypertension. Chronic obstructive pulmonary disease. SURGICAL HISTORY : None. ENCOUNTER: Initial ACUITY: 1 day PAIN SCALE: 5/10 LOCATION: Bilateral chest TECHNIQUE: Volumetric scanning of the chest was performed using a pulmonary embolism protocol MIP images were re constructed. Using automated exposure control and adjustment of the mA and/or kV according to patien t size, radiation dose was kept as low as reasonably achievable to obtain optimal diagnostic quality images. DICOM format image data is available electronically for review and comparison. Follow-up recommendations for detected pulmonary nodules are based at a minimum on nodule size and pa tient risk factors according to Fleischner Society Guidelines. FINDINGS: PULMONARY ARTERIES: No filling defects are seen in the pulmonary arteries through the segmental level. LUNGS: Multiple scattered interstitial infiltrates are seen throughout both lung shaikh. PLEURAE: Small bilateral pleural effusions. MEDIASTINUM: There is good visualization of the great vessels of the middle mediastinum. No evidence of mediastin al or hilar adenopathy/mass. MUSCULOSKELETAL: Within normal limits for patient age. MISCELLANEOUS: The visualized upper abdominal organs demonstrate no acute abnormality. CONCLUSION: 1. No evidence of pulmonary embolism. 2. Multiple scattered diffuse interstitial infiltrates bilaterally with small bilateral pleural effus ions. Bennett Mccabe MD on August 16, 2017 at 12:18 Board Certified Radiologist. This report was verified electronically.
[2017-08-16] MEDS: FLUTICASONE 200 MCG/VILANTEROL 25 MCG INHALER INH SCH (14:00)
[2017-08-16 15:03] LABS: BLOOD GAS BASE EXCESS -4.6 mmol/L (-2-2); BLOOD GAS CARBOXYHEMOGLOBIN 2.1 % (0-4); BLOOD GAS HCO3 19 mmol/L (22-26); BLOOD GAS METHEMOGLOBIN 0.7 % (0-2); BLOOD GAS O2 HGB SATURATION 92 % (90-100); BLOOD GAS OXYGEN CONTENT 14.1 Vol % (12.0-20.0); BLOOD GAS PCO2 26 mmHg (38-42); BLOOD GAS PO2 68 mmHg (61-120); BLOOD GAS TOTAL HGB 10.9 G/DL (12.0-16.0); CRITICAL VALUE NO; DRAW SITE RT RADIAL; FIO2 21 %; NUMBER OF ARTERIAL PUNCTURES 1; STAT NO; TEMP CORR TO 98.6; ULNAR PULSE PRESENT
[2017-08-16 15:39] VITALS: O2SAT 95
[2017-08-16] MEDS: RESP: ALBUTEROL 2.5 MG/IPRATROPIUM 0.5 MG NEB (SCH) NEB ×2 (15:39→19:22)
[2017-08-16 16:00] VITALS: BP 106/56; PULSE 93; RESP 26; TEMP 98.3; O2SAT 96
--- NOTE | 2017-08-16 17:25 | HHI.PR ---
Subjective Remarks Patient seen today around noon. Sitting up in bed. Says he is feeling okay, except that cough continues. Cough is productive of brownish sputum. Patient denies any nausea, vomiting, aspiration. Denies any chest pain. Denies any shortness of breath. Objective Vital Signs Date Time Temp Pulse Resp B/P (MAP) Pulse Ox O2 Delivery O2 Flow Rate FiO2 08/16/17 16:00 98.3 93 26 106/56 (73) 96 08/16/17 15:39 95 21 08/16/17 08:00 99.1 95 26 108/62 (77) 95 08/16/17 05:38 99.5 107 18 133/60 (84) 93 08/16/17 01:07 99.1 94 16 114/62 (79) 94 08/15/17 20:49 98.9 92 16 113/54 (73) 92 I/O 08/15/17 08/15/17 08/15/17 08/16/17 08/16/17 08/16/17 07:00 15:00 23:00 07:00 15:00 23:00 Intake Total 480 ml 480 ml Output Total 70 ml Balance -70 ml 480 ml 480 ml Intake Oral 480 ml 480 ml Drainage Total 70 ml # Voids 3 4 2 8 # Bowel Movements 1 1 2 Result Diagram: 08/16/17 0734 08/16/17 07 Objective Remarks GENERAL: Patient lying in bed appears comfortable. SKIN: Warm and dry. HEAD: Normocephalic. EYES: No scleral icterus. No injection or drainage. NECK: Supple, trachea midline. No JVD CARDIOVASCULAR: Regular rate and rhythm without murmurs, gallops, or rubs. RESPIRATORY: Breath sounds equal bilaterally. No accessory muscle use. brown sputum. does not appear to be bloody GASTROINTESTINAL: Abdomen soft, non-tender, nondistended. MUSCULOSKELETAL: No cyanosis, or edema. BACK: Nontender without obvious deformity. No CVA tenderness. A/P Assessment and Plan ===08/16/17 //Hypophosphatemia. 1.6 again. Replaced again. Continue to monitor. //CHF exacerbation. -Reviewed cardiology's recommendations. CT pulmonary angiogram negative for pulmonary embolism. Consult pulmonology //Nonproductive cough. //possible atypical pneumonia -CT with interstitial infiltrates. -Consult pulmonology. Have ordered ABG. Start Brio which patient takes at home. //Anemia. Stable. No signs of bleeding.. //Thrombocytopenia. Improved again 77 from 65 yesterday. No signs of bleeding. //Status post lumbar surgery pain control to Dr. Davila. //Possible New-onset CHF --BNP in the 600s on 08/14. diuresed. -Chest x-ray with bilateral infiltrates. - fluid restrictions. echo with ejection fraction 55-60%. -Continue close monitoring of fluid status. //possible atypical pneumonia -Chest x-ray yesterday was bilateral interstitial infiltrates, continues today. Due to cough, Started on Levaquin for possible atypical pneumonia = Pulmonology following. Appreciate assistance. //constipation. Laxatives ordered. Discussed with nursing //Alcohol abuse continue on CIWA protocol continue on multivitamin thiamine and folic acid //Tobacco abuse NicoDerm patch and duo nebs as needed COPD duo nebs as needed //Hypertension home medications //hyperlipidemia home medications //LEUKOCYTOSIS- AM LABS //ANEMIA- MONITOR //THROMBOCYTOPENIA- SUSPECT DUE TO ALCOHOL ABUSE- AM LABS Discharge Planning patient with possible interstitial pneumonia.pulm consult. sputum cx pending. Martin Navarro MD Aug 16, 2017 17:25
[2017-08-16] MEDS: traMADol HCL 50 MG TAB PO SCH (19:55)
--- NOTE | 2017-08-16 20:10 | MB ---
cc: TRA VANG DATE OF CONSULTATION: 08/16/2017. REASON FOR CONSULTATION: Respiratory insufficiency with history of COPD. HISTORY OF PRESENT ILLNESS: This is a 72-year-old white male who has had prior history of COPD who was admitted for lumbar laminectomy and underwent repeat lumbar laminectomy by Dr. Davila. This included L5-S1 laminectomy, interbody arthrodesis using PEEK cage autologous bone graft and L5-S1 instrumental fixation using transpedicular screws and rods, L5-S1 posterolateral fusion using autologous bone graft and demineralized bone matrix. The patient postoperatively was having some cough with brownish-yellow expectoration and also had some wheezing. He has had some leg swelling and apparently was hypoxic and had to be on oxygen. A chest CT was done today which showed patchy bilateral infiltrates consistent with either pneumonia and/or pulmonary edema. The patient had no chest pains. No hemoptysis. No leg or calf muscle pains. PAST MEDICAL HISTORY: Past history includes: 1. Hypertension. 2. Hyperlipidemia. 3. History of COPD and emphysema. 4. History of cervical disc surgery. 5. Bilateral cataract surgery. 6. Lumbar surgery in the past. 7. He had a tonsillectomy remotely. 8. He had a left total knee replacement. 9. Ear surgery on the left. HABITS: The patient was a prior smoker of half to one-pack per day for over thirty years. No significant alcohol use. ALLERGIES: 1. PENICILLIN. FAMILY HISTORY: Family history is noncontributory. REVIEW OF SYSTEMS: The patient is coughing and bringing up brownish-yellow mucus. He has no fevers. He has some dizzy attacks. He has postnasal drip and hoarseness. He has some epigastric distress and nausea. He denies leg or calf muscle pains but has back pain and joint pains and some anxiety. PHYSICAL EXAMINATION: GENERAL: This is a well-built elderly white male who is alert, anxious and mildly dyspneic at rest. VITAL SIGNS: His blood pressure 130/70, pulse is 80, respirations are 18, temperature 97.5. HEAD, EYES, EARS, NOSE, THROAT: Head normocephalic. Pupils are reactive and equal. Tongue moist. Throat was clear. Nasal mucosa is edematous. NECK: The neck is supple. No lymphadenopathy. No bruits or thyroid enlargement. CHEST: Decreased breath sounds at the periphery. Wheezes were scattered bilaterally with occasional basilar crackles. HEART: The heart sounds are regular S1-S2 with no murmur. No S3. ABDOMEN: The abdomen is soft, protuberant. No masses or organomegaly or tenderness. Bowel sounds are active. BACK: On the back, there was a dressing in the posterior back with tenderness around the wound. EXTREMITIES: Minimal edema with decreased peripheral pulses. NEUROLOGICAL EXAMINATION: Reflexes are 1+. The patient does move all his extremities well with no gross motor deficits. Cranial nerves grossly intact. SKIN: No lesions. IMPRESSION: 1. COPD with acute exacerbation and chronic bronchitis. 2. Basilar atelectasis with possible atypical pneumonia. 3. He is status post lumbar laminectomy and fusion. 4. Hypertension. 5. Hyperlipidemia. PLAN: 1. The patient will be placed on O2 at 2 liters nasal cannula. 2. We will get a sputum culture and Gram stain. 3. Antibiotic therapy will be continued including Levaquin 750 mg daily and we will add Rocephin 1 gram IV daily. 4. Nebulized DuoNeb solution will be added four times a day. 5. Breo Ellipta 200/25 micrograms 1 puff daily will be continued. 6. A follow up chest x-ray is to be obtained. 7. We will try to wean him off the oxygen over the next 24 to 48 hours. Thank you, Dr. Root, for this consultation. MD KIRK Ferrari/ELIO /7:26 PM /7:57 PM
[2017-08-16 20:52] VITALS: BP 123/58; PULSE 109; RESP 20; TEMP 99.3; O2SAT 95
[2017-08-16] MEDS: TEMAZEPAM 7.5 MG CAP PO PRN (22:02)
[2017-08-16] MEDS: BENZONATATE 100 MG CAP PO PRN (22:05)
[2017-08-17] VITALS (7 sets, daily range): BP systolic 89–134; BP diastolic 51–62; PULSE 83–99; RESP 16–20; TEMP 98.5–99.4; O2SAT 95–98
[2017-08-17] MEDS: RESP: ALBUTEROL CONC 2.5 MG/0.5 ML NEB NEB SCH (02:51)
[2017-08-17] MEDS: RESP: ALBUTEROL 2.5 MG/IPRATROPIUM 0.5 MG NEB (SCH) NEB ×3 (07:00→19:08)
[2017-08-17 08:38] LABS: BASOPHIL % 0.3 % (0.0-2.0); EOSINOPHIL # 0.1 TH/MM3 (0-0.4); EOSINOPHIL % 2.2 % (0.0-4.0); HEMATOCRIT 27.3 % (39.0-51.0); LYMPHOCYTE # 0.9 TH/MM3 (1.0-4.8); MEAN CELL VOLUME 98.1 FL (80.0-100.0); MEAN CORPUSCULAR HGB CONC 34.6 % (32.0-36.0); MONO % 16.9 % (0.0-8.0); NEUT % 65.6 % (16.0-70.0); PLATELET COUNT 86 TH/MM3 (150-450); RED BLOOD COUNT 2.79 MIL/MM3 (4.50-5.90); RED CELL DISTRIBUTION WIDTH 13.1 % (11.6-17.2); WHITE BLOOD COUNT 6.2 TH/MM3 (4.0-11.0)
[2017-08-17 08:45] LABS: HEMO FLAGS AUTO DIFF
[2017-08-17 08:58] LABS: BICARBONATE 19.3 MEQ/L (21.0-32.0); MAGNESIUM 2.1 MG/DL (1.5-2.5); POTASSIUM 3.7 MEQ/L (3.5-5.1)
[2017-08-17] MEDS: REMOVE OLD PATCH T-DERMAL SCH (09:00)
[2017-08-17] MEDS: SODIUM CHLORIDE 0.9% FLUSH 5 ML FLUSH IVF SCH ×2 (09:00→21:07)
--- NOTE | 2017-08-17 09:13 | HHI.NSPN ---
History Chief Complaint: Mild incisional pain. Interval History Mr. Elena s/p L5-S1 laminectomy, interbody arthrodesis using PEEK cage and autologous bone graft, L5-S1 instrumental fixation using transpedicular screws and rods, L5-S1 posterolateral fusion using autologous bone graft and demineralized bone matrix. Microsurgical dissection on Aug 12, 2017 for lumbar spondylosis and disc herniation. 08/13: sitting up in chair this morning, pain controlled. denies focal weakness in legs. 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 reports minimal to no back pain. noncompliant with LSO, ambulating without brace. 08/15: Pt awake and alert. Complains of very mild incisional discomfort. No radiculopathy in LEs. Pt ambulating to bathroom independently. 08/16: Patient awake and alert. Sitting up in chair. Patient has very mild incisional discomfort. No radiculopathy in the lower extremities. Patient states that he was seen by cardiology and was told he has congestive heart failure and is undergoing further workup. 08/17: Pt awake and alert. Mild incisional pain. No radiculopathy or paresthesias in LEs. Pt complains of mild sob laying appearing comfortable in bed. Review of Systems General: Negative for: fever, chills, insomnia Respiratory: Positive for: shortness of breath, cough, sputum Cardiovascular: Positive for: chest pain Gastrointestinal: Negative for: nausea, vomitting, diarrhea, constipation Exam Results Vital Signs Date Time Temp Pulse Resp B/P (MAP) Pulse Ox O2 Delivery O2 Flow Rate FiO2 08/17/17 08:00 99.1 91 16 134/62 (86) 95 08/16/17 15:39 21 Physical Examination Resp: CTA. Pt just had nebulizer tx. Heart; NSR no murmurs Abd: Soft positive bs Skin: No cyanosis or erythema. Muscle: Moves all 4 extremities well good strength in LEs. Neuro: Pt awake and alert. Follows commands well. Speech clear and appropriate. Lab, Micro, Other Results Last Impressions CT Angiography 08/16/17 0000 Signed Impressions: Service Date/Time: Wednesday, August 16, 2017 11:29 - CONCLUSION: 1. No evidence of pulmonary embolism. 2. Multiple scattered diffuse interstitial infiltrates bilaterally with small bilateral pleural effusions. Bennett Mccabe MD Chest X-Ray 08/15/17 0000 Signed Impressions: Service Date/Time: Tuesday, August 15, 2017 12:15 - CONCLUSION: Diffuse predominantly interstitial infiltrates concerning for congestive failure. Mp Eason MD Lumbar Spine X-Ray 08/12/17 0000 Signed Impressions: Service Date/Time: Saturday, August 12, 2017 10:00 - CONCLUSION: Spot fluoroscopic image of the lumbar spine, as above. Ilan Michelle MD Laboratory Tests Test 08/16/17 14:45 08/17/17 07:48 Blood Gas Puncture Site RT RADIAL Blood Gas Patient Temperature 98.6 Blood Gas HCO3 19 mmol/L Blood Gas Base Excess -4.6 mmol/L Blood Gas Oxygen Saturation 92 % Arterial Blood pH 7.46 Arterial Blood Partial Pressure CO2 26 mmHg Arterial Blood Partial Pressure O2 68 mmHg Arterial Blood Oxygen Content 14.1 Vol % Arterial Blood Carboxyhemoglobin 2.1 % Arterial Blood Methemoglobin 0.7 % Blood Gas Hemoglobin 10.9 G/DL Blood Gas Inspired Oxygen 21 % White Blood Count 6.2 TH/MM3 Red Blood Count 2.79 MIL/MM3 Hemoglobin 9.5 GM/DL Hematocrit 27.3 % Mean Corpuscular Volume 98.1 FL Mean Corpuscular Hemoglobin 34.0 PG Mean Corpuscular Hemoglobin Concent 34.6 % Red Cell Distribution Width 13.1 % Platelet Count 86 TH/MM3 Mean Platelet Volume 9.6 FL Neutrophils (%) (Auto) 65.6 % Lymphocytes (%) (Auto) 15.0 % Monocytes (%) (Auto) 16.9 % Eosinophils (%) (Auto) 2.2 % Basophils (%) (Auto) 0.3 % Neutrophils # (Auto) 4.0 TH/MM3 Lymphocytes # (Auto) 0.9 TH/MM3 Monocytes # (Auto) 1.0 TH/MM3 Eosinophils # (Auto) 0.1 TH/MM3 Basophils # (Auto) 0.0 TH/MM3 CBC Comment AUTO DIFF Blood Urea Nitrogen 11 MG/DL Creatinine 1.01 MG/DL Random Glucose 131 MG/DL Albumin 2.0 GM/DL Calcium Level 8.2 MG/DL Phosphorus Level 2.6 MG/DL Magnesium Level 2.1 MG/DL Sodium Level 138 MEQ/L Potassium Level 3.7 MEQ/L Chloride Level 107 MEQ/L Carbon Dioxide Level 19.3 MEQ/L Anion Gap 12 MEQ/L Estimat Glomerular Filtration Rate 73 ML/MIN Medical Decision Making Impression and Plan A: 72 y/o M s/p L5/S1 PLIF. P: D/C home when medically stable. F/U with Dr. Davila. Tarik Caba Aug 17, 2017 9:13 am
[2017-08-17 09:25] LABS: PLATELET ESTIMATE SMEAR LOW (NORMAL); PLATELET MORPHOLOGY ENLARGED (NORMAL); SCAN/DIFF AUTO DIFF CONFIRMED
[2017-08-17] MEDS: FLUTICASONE 200 MCG/VILANTEROL 25 MCG INHALER INH SCH (09:53)
[2017-08-17] MEDS: PANTOPRAZOLE SODIUM 40 MG VIAL IVP SCH (09:54)
[2017-08-17] MEDS: LEVOFLOXACIN 750 MG TAB PO SCH (09:54)
[2017-08-17] MEDS: FOLIC ACID 1 MG TAB PO SCH (09:54)
[2017-08-17] MEDS: THIAMINE HCL 100 MG TAB PO SCH (09:54)
[2017-08-17] MEDS: VITAMIN E 400 UNIT CAP PO SCH (09:54)
[2017-08-17] MEDS: ATORVASTATIN 20 MG TAB PO SCH (09:54)
[2017-08-17] MEDS: CHOLECALCIFEROL (VIT D3) 1000 UNIT TAB PO SCH (09:54)
[2017-08-17] MEDS: guaiFENesin E.R. 600 MG TAB PO SCH ×2 (09:54→21:04)
[2017-08-17] MEDS: VITAMIN B COMPLEX/VIT C TAB PO SCH (09:55)
[2017-08-17] MEDS: FUROSEMIDE 20 MG TAB PO SCH (09:55)
[2017-08-17] MEDS: LISINOPRIL 5 MG TAB PO SCH (09:55)
[2017-08-17] MEDS: MULTIVITAMIN TAB PO SCH (09:55)
[2017-08-17] MEDS: NICOTINE 7 MG/24 HR PATCH T-DERMAL SCH (09:56)
--- NOTE | 2017-08-17 16:15 | HHI.PR ---
Subjective Remarks He is better . Wants to go home. On O2 . Sputum culture shows mixed jackie.. No fever Objective Vital Signs Date Time Temp Pulse Resp B/P (MAP) Pulse Ox O2 Delivery O2 Flow Rate FiO2 08/17/17 11:15 98.6 99 17 89/52 (64) 95 08/17/17 08:00 99.1 91 16 134/62 (86) 95 08/17/17 05:30 98.9 93 18 95/51 (66) 95 08/17/17 00:36 99.4 94 18 103/57 (72) 95 08/16/17 20:52 99.3 109 20 123/58 (79) 95 I/O 08/16/17 08/16/17 08/16/17 08/17/17 08/17/17 08/17/17 07:00 15:00 23:00 07:00 15:00 23:00 Intake Total 480 ml 1200 ml Balance 480 ml 1200 ml Intake Oral 480 ml 1200 ml # Voids 2 5 8 2 # Bowel Movements 1 3 Result Diagram: 08/17/1748 08/17/1748 Objective Remarks PHYSICAL EXAMINATION: GENERAL: This is a well-built elderly white male who is alert, anxious and Not dyspneic at rest. HEAD, EYES, EARS, NOSE, THROAT: Head normocephalic. Pupils are reactive and equal. Tongue moist. Throat was clear. Nasal mucosa is edematous. NECK: The neck is supple. No lymphadenopathy. No bruits or thyroid enlargement. CHEST: Decreased breath sounds at the periphery. Wheezes were scattered bilaterally with occasional basilar crackles. HEART: The heart sounds are regular S1-S2 with no murmur. No S3. ABDOMEN: The abdomen is soft, protuberant. No masses or organomegaly or tenderness. Bowel sounds are active. BACK: On the back, there was a dressing in the posterior back EXTREMITIES: Minimal edema with decreased peripheral pulses. NEUROLOGICAL EXAMINATION: Reflexes are 1+. The patient does move all his extremities well with no gross motor deficits. Cranial nerves grossly intact. SKIN: No lesions. Assessment and Plan Assessment and Plan IMPRESSION: 1. COPD with acute exacerbation and chronic bronchitis. 2. Basilar atelectasis with possible atypical pneumonia. 3. He is status post lumbar laminectomy and fusion. 4. Hypertension. 5. Hyperlipidemia. Plan : 1. Continue Levaquin 750 mg PO daily X5. 2. nebs qid , duoneb 3. Wean O2 to RA. 4. IS q3h at bedside. 5. OK to go home in am if stable. Luis Felipe Goldstein MD Aug 17, 2017 16:15
[2017-08-17] MEDS: traMADol HCL 50 MG TAB PO SCH (21:05)
--- NOTE | 2017-08-17 21:58 | HHI.PR ---
Subjective Remarks Patient seen this afternoon around 2 PM. He says he is feeling all right, would like to go home. Denies any shortness of breath. Denies any chest pain. Objective Vital Signs Date Time Temp Pulse Resp B/P (MAP) Pulse Ox O2 Delivery O2 Flow Rate FiO2 08/17/17 19:08 97 21 08/17/17 15:30 98.5 83 16 90/55 (67) 98 08/17/17 11:15 98.6 99 17 89/52 (64) 95 08/17/17 08:00 99.1 91 16 134/62 (86) 95 08/17/17 05:30 98.9 93 18 95/51 (66) 95 08/17/17 00:36 99.4 94 18 103/57 (72) 95 I/O 08/16/17 08/16/17 08/16/17 08/17/17 08/17/17 08/17/17 07:00 15:00 23:00 07:00 15:00 23:00 Intake Total 480 ml 1200 ml Balance 480 ml 1200 ml Intake Oral 480 ml 1200 ml # Voids 2 5 8 2 # Bowel Movements 1 3 1 Result Diagram: 08/17/17 0748 08/17/1748 Objective Remarks GENERAL: Patient sitting up in bed appears comfortable. SKIN: Warm and dry. HEAD: Normocephalic. EYES: No scleral icterus. No injection or drainage. NECK: Supple, trachea midline. No JVD CARDIOVASCULAR: Regular rate and rhythm without murmurs, gallops, or rubs. RESPIRATORY: Breath sounds equal bilaterally. No accessory muscle use. brown sputum. does not appear to be bloody GASTROINTESTINAL: Abdomen soft, non-tender, nondistended. MUSCULOSKELETAL: No cyanosis, or edema. BACK: Nontender without obvious deformity. No CVA tenderness. A/P Assessment and Plan ===08/17/17 I was called earlier around 1 PM by the nurse to report that patient's blood pressure was 106/57 by manual cuff, and the patient reported shortness of breath. At the time of my examination patient denied any shortness of breath, however there is the possibility that patient is minimizing his symptoms (he does want to go home). We will continue to monitor. Does not appear dehydrated. Will continue Lasix as ordered. //Hypophosphatemia. 2.6. Resolved after replacement. //Hypertension. //CHF exacerbation. = Blood pressure slightly low today. No indication of dehydration. Continue Lasix. //Nonproductive cough. //possible atypical pneumonia -Respiratory status appears stable. Possible discharge tomorrow if cleared by pulmonology. //Thrombocytopenia. Improved again 86 from 77 yesterday. No signs of bleeding. //Status post lumbar surgery pain control to Dr. Davila. //Possible New-onset CHF --BNP in the 600s on 08/14. diuresed. -Chest x-ray with bilateral infiltrates. - fluid restrictions. echo with ejection fraction 55-60%. - CT pulmonary angiogram negative for pulmonary embolism. Consult pulmonology -Continue close monitoring of fluid status. //possible atypical pneumonia -Chest x-ray yesterday was bilateral interstitial infiltrates, continues today. Due to cough, Started on Levaquin for possible atypical pneumonia = Pulmonology following. Appreciate assistance. //constipation. Stable. Continue to monitor. //Alcohol abuse no indication of withdrawal. Discontinue CIWA protocol. = continue on multivitamin thiamine and folic acid //Tobacco abuse NicoDerm patch and duo nebs as needed COPD duo nebs as needed //Hypertension. Patient's blood pressure is been in the 90s to 100 systolic. He continues on Lasix which is really more for preventing fluid overload than it is for blood pressure. //hyperlipidemia home medications //LEUKOCYTOSIS- AM LABS //ANEMIA-stable. MONITOR //THROMBOCYTOPENIA- SUSPECT DUE TO ALCOHOL ABUSE- AM LABS Discharge Planning patient with possible interstitial pneumonia.pulm consult. sputum cx pending. Martin Navarro MD Aug 17, 2017 21:58
[2017-08-17] MEDS: TEMAZEPAM 7.5 MG CAP PO PRN (22:26)
[2017-08-17] MEDS: BENZONATATE 100 MG CAP PO PRN (22:26)
[2017-08-18 00:33] VITALS: BP 86/54; PULSE 93; RESP 18; TEMP 98.9; O2SAT 96
[2017-08-18 05:00] VITALS: BP 96/55; PULSE 87; RESP 18; TEMP 99.7; O2SAT 95
[2017-08-18 06:54] LABS: AUTOMATED NEUTROPHIL # 3.6 TH/MM3 (1.8-7.7); BASOPHIL % 0.2 % (0.0-2.0); EOSINOPHIL # 0.2 TH/MM3 (0-0.4); EOSINOPHIL % 3.5 % (0.0-4.0); HEMATOCRIT 25.6 % (39.0-51.0); LYMPH % 16.1 % (9.0-44.0); MEAN CELL VOLUME 96.1 FL (80.0-100.0); MEAN CORPUSCULAR HEMOGLOBIN 34.1 PG (27.0-34.0); MEAN CORPUSCULAR HGB CONC 35.5 % (32.0-36.0); MONO % 18.7 % (0.0-8.0); NEUT % 61.5 % (16.0-70.0); PLATELET COUNT 85 TH/MM3 (150-450); RED BLOOD COUNT 2.67 MIL/MM3 (4.50-5.90); RED CELL DISTRIBUTION WIDTH 12.9 % (11.6-17.2); WHITE BLOOD COUNT 5.9 TH/MM3 (4.0-11.0)
[2017-08-18 06:58] LABS: HEMO FLAGS AUTO DIFF
[2017-08-18 07:17] LABS: BICARBONATE 19.7 MEQ/L (21.0-32.0); MAGNESIUM 1.9 MG/DL (1.5-2.5); POTASSIUM 3.4 MEQ/L (3.5-5.1)
[2017-08-18] MEDS: RESP: ALBUTEROL 2.5 MG/IPRATROPIUM 0.5 MG NEB (SCH) NEB (07:25)
[2017-08-18] MEDS ORDERED: POTASSIUM CHLORIDE 20 MEQ PWD PACKET PO ONE (08:30)
[2017-08-18 08:38] LABS: PLATELET ESTIMATE SMEAR LOW (NORMAL); PLATELET MORPHOLOGY NORMAL (NORMAL); SCAN/DIFF AUTO DIFF CONFIRMED
[2017-08-18 08:40] VITALS: BP 138/58; PULSE 83; RESP 18; TEMP 98; O2SAT 95
[2017-08-18] MEDS: SODIUM CHLORIDE 0.9% FLUSH 5 ML FLUSH IVF SCH (08:49)
[2017-08-18] MEDS: FLUTICASONE 200 MCG/VILANTEROL 25 MCG INHALER INH SCH (08:49)
[2017-08-18] MEDS: ATORVASTATIN 20 MG TAB PO SCH (08:51)
[2017-08-18] MEDS: guaiFENesin E.R. 600 MG TAB PO SCH (08:51)
[2017-08-18] MEDS: MULTIVITAMIN TAB PO SCH (08:51)
[2017-08-18] MEDS: LEVOFLOXACIN 750 MG TAB PO SCH (08:52)
[2017-08-18] MEDS: FOLIC ACID 1 MG TAB PO SCH (08:52)
[2017-08-18] MEDS: FUROSEMIDE 20 MG TAB PO SCH (08:52)
[2017-08-18] MEDS: VITAMIN B COMPLEX/VIT C TAB PO SCH (08:52)
[2017-08-18] MEDS: THIAMINE HCL 100 MG TAB PO SCH (08:52)
[2017-08-18] MEDS: VITAMIN E 400 UNIT CAP PO SCH (08:53)
[2017-08-18] MEDS: PANTOPRAZOLE SODIUM 40 MG VIAL IVP SCH (08:53)
[2017-08-18] MEDS: REMOVE OLD PATCH T-DERMAL SCH (08:53)
[2017-08-18] MEDS: CHOLECALCIFEROL (VIT D3) 1000 UNIT TAB PO SCH (08:53)
[2017-08-18] MEDS: NICOTINE 7 MG/24 HR PATCH T-DERMAL SCH (08:54)
[2017-08-18] MEDS: LISINOPRIL 5 MG TAB PO SCH (08:55)
[2017-08-18] MEDS ORDERED: DOCU100C PO (10:48)
--- NOTE | 2017-08-18 10:52 | HHI.DS ---
Discharge Summary Admission Date Aug 12, 2017 at 06:27 Discharge Date: Aug 18, 2017 Admitting Diagnosis (1) Hypertension ICD Code: I10 - Essential (primary) hypertension Diagnosis: Secondary (2) Hyperlipidemia ICD Code: E78.5 - Hyperlipidemia, unspecified Diagnosis: Secondary (3) COPD (chronic obstructive pulmonary disease) ICD Code: J44.9 - Chronic obstructive pulmonary disease, unspecified Diagnosis: Secondary (4) Tobacco abuse ICD Code: Z72.0 - Tobacco use Diagnosis: Secondary (5) Alcohol abuse ICD Code: F10.10 - Alcohol abuse, uncomplicated Diagnosis: Secondary (6) Osteoarthritis ICD Code: M19.90 - Unspecified osteoarthritis, unspecified site Diagnosis: Secondary (7) Status post lumbar spinal fusion ICD Code: Z98.1 - Arthrodesis status Diagnosis: Principal Status: Acute Procedures Mr. Elena s/p L5-S1 laminectomy, interbody arthrodesis using PEEK cage and autologous bone graft, L5-S1 instrumental fixation using transpedicular screws and rods, L5-S1 posterolateral fusion using autologous bone graft and demineralized bone matrix. Microsurgical dissection on Aug 12, 2017 for lumbar spondylosis and disc herniation. Brief History - From Admission Mr. Elena is a 72 year-old male who presented with intractable mechanical back pain and caroline evidence of lower extremity radiculopathy. He has history of a prior L3-L5 posterior instrumented fusion. He has developed severe adjacent level degenerative disk disease with a large disk herniation at L5-S1. He failed maximum nonsurgical management including multiple modalities of conservative treatment as well as pain management interventions by an interventional pain specialist. The patient has undergone a previous surgical procedure. A redo surgical decompression and arthrodhesis were indicated as a last resort. We have been asked to see the patient regarding help with medical management. Patient has a extensive medical history of hypertension hyperlipidemia tobacco COPD alcohol abuse and marijuana abuse as well as bladder issues We'll make sure that that placed the patient on CIWA protocol I discussed with the patient and Dr. Davila CBC/BMP: 08/18/17 0524 08/18/17 0624 Significant Findings Laboratory Tests Test 08/16/17 07:34 08/16/17 14:45 08/17/17 07:48 08/18/17 05:24 Red Blood Count 2.96 MIL/MM3 (4.50-5.90) 2.79 MIL/MM3 (4.50-5.90) 2.67 MIL/MM3 (4.50-5.90) Hemoglobin 10.1 GM/DL (13.0-17.0) 9.5 GM/DL (13.0-17.0) 9.1 GM/DL (13.0-17.0) Hematocrit 28.9 % (39.0-51.0) 27.3 % (39.0-51.0) 25.6 % (39.0-51.0) Mean Corpuscular Hemoglobin 34.3 PG (27.0-34.0) 34.1 PG (27.0-34.0) Platelet Count 77 TH/MM3 (150-450) 86 TH/MM3 (150-450) 85 TH/MM3 (150-450) Monocytes (%) (Auto) 15.5 % (0.0-8.0) 16.9 % (0.0-8.0) 18.7 % (0.0-8.0) Monocytes # (Auto) 1.2 TH/MM3 (0-0.9) 1.0 TH/MM3 (0-0.9) 1.1 TH/MM3 (0-0.9) Platelet Estimate LOW (NORMAL) LOW (NORMAL) LOW (NORMAL) Platelet Morphology Comment ENLARGED (NORMAL) ENLARGED (NORMAL) Ovalocytes 1+ (NORMAL) Random Glucose 64 MG/DL (74-106) 131 MG/DL (74-106) Albumin 2.2 GM/DL (3.4-5.0) 2.0 GM/DL (3.4-5.0) Calcium Level 7.8 MG/DL (8.5-10.1) 8.2 MG/DL (8.5-10.1) Phosphorus Level 1.6 MG/DL (2.5-4.9) Carbon Dioxide Level 18.7 MEQ/L (21.0-32.0) 19.3 MEQ/L (21.0-32.0) Blood Gas HCO3 19 mmol/L (22-26) Blood Gas Base Excess -4.6 mmol/L (-2-2) Arterial Blood pH 7.46 (7.380-7.420) Arterial Blood Partial Pressure CO2 26 mmHg (38-42) Blood Gas Hemoglobin 10.9 G/DL (12.0-16.0) Lymphocytes # (Auto) 0.9 TH/MM3 (1.0-4.8) Estimat Glomerular Filtration Rate 73 ML/MIN (>89) Test 08/18/17 06:24 Albumin 1.9 GM/DL (3.4-5.0) Calcium Level 8.1 MG/DL (8.5-10.1) Potassium Level 3.4 MEQ/L (3.5-5.1) Chloride Level 108 MEQ/L (98-107) Carbon Dioxide Level 19.7 MEQ/L (21.0-32.0) PE at Discharge GENERAL: This is a well-nourished, well-developed patient, in no apparent distress. SKIN: No rashes, ecchymoses or lesions. Cool and dry. HEAD: Atraumatic. Normocephalic. No temporal or scalp tenderness. EYES: Pupils equal round and reactive. Extraocular motions intact. No scleral icterus. No injection or drainage. ENT: Nose without bleeding, purulent drainage or septal hematoma. Throat without erythema, tonsillar hypertrophy or exudate. Uvula midline. Airway patent. Tongue is midline NECK: Trachea midline. No JVD or lymphadenopathy. Supple, nontender, no meningeal signs. CARDIOVASCULAR: Regular rate and rhythm without murmurs, gallops, or rubs. S1- S2 no S3 or S4 RESPIRATORY: Clear to auscultation. Breath sounds equal bilaterally. No wheezes , rales, or rhonchi. GASTROINTESTINAL: Abdomen soft, non-tender, nondistended. No hepato-splenomegaly , or palpable masses. No guarding. MUSCULOSKELETAL: Extremities without clubbing, cyanosis, or edema. No joint tenderness, effusion, or edema noted. No calf tenderness. Negative Homans sign bilaterally. NEUROLOGICAL: Awake and alert. Cranial nerves II through XII intact. Motor and sensory grossly within normal limits. Five out of 5 muscle strength in all muscle groups. Normal speech. Insight and judgment is good; mood and behaviors appropriate Hospital Course Mr. Elena is a 72-year-old male. He came in with mechanical back pain and lower extremity radiculopathy. She's had a previous L3/L5 posterior fusion. Progressive degenerative disc disease with a large herniation at L5/S1 were present. She had failed conservative treatments. During this hospital stay he had a laminectomy of L5/S1. Fusion and cage placed. Postop he had some complications with hypotension and shortness of breath. Today he is doing better. He's been cleared by neurosurgery and pulmonology. Cardiology has also cleared this patient. He is medically stable for discharge to home today. Continue physical therapy at home. Pt Condition on Discharge: Stable Discharge Disposition: Disch w/ Home Health Serv Discharge Time: > 30 minutes Discharge Instructions DIET: Follow Instructions for: Heart Healthy Diet Activities you can perform: Weight Bearing as Konstantin Other Activity Instructions: Avoid strenuous activities, heavy lifting, overhead activities, repetitive bending, twisting, pushing, pulling or any activities which might result in stress over the spine. Avoid situation that will put at risk for falls. Use assistive device as needed for walking. Wear LSO brace when out of bed. Follow up Referrals: PCP Follow-up - 2 Weeks New Medications: Docusate Sodium (Docusate Sodium) 100 Mg Cap 100 MG PO BID PRN for CONSTIPATION, #60 CAP 0 Refills Hydrocodone-Acetaminophen (Lortab) 10-325 Mg Tab 1 TAB PO Q8HR PRN for PAIN, #90 TAB 0 Refills Continued Medications: B-Complex Vitamins (B Complex) 1 Cap 1 CAP PO DAILY for Nutritional Supplement, #30 CAP 0 Refills Biotin (Biotin) 10 Mg Tab 10 MG PO DAILY for Nutritional Supplement, #1 BOTTLE 0 Refills Cholecalciferol (Vitamin D-1000) 1,000 Unit Tab 1000 UNITS PO DAILY for Nutritional Supplement, #1 BOTTLE 0 Refills Furosemide (Furosemide) 20 Mg Tab 10 MG PO DAILY, #30 TAB 0 Refills Lisinopril (Lisinopril) 5 Mg Tab 5 MG PO DAILY for Blood Pressure Management, #30 TAB 0 Refills Multiple Vitamin (Multi-Vitamin Daily) 1 Tab Tab 1 TAB PO DAILY for Nutritional Supplement, TAB 0 Refills Rosuvastatin (Crestor) 10 Mg Tab 10 MG PO DAILY for Cholesterol Management, #30 TAB 0 Refills Temazepam (Temazepam) 7.5 Mg Cap 7.5 MG PO HS PRN for INSOMNIA, #30 CAP 0 Refills Tramadol (Tramadol) 50 Mg Tab 50 MG PO HS Vitamin E (Vitamin E) 200 Unit Cap 400 UNITS PO DAILY for Nutritional Supplement, CAP 0 Refills pM Minor MD Aug 18, 2017 10:52
--- NOTE | 2017-08-18 12:40 | HHI.NSPN ---
History Chief Complaint: Mild incisional pain. Interval History Status post lumbar laminectomy, interbody fusion. No complaint of significant lower extremity pain which is or numbness. Moderate low back pain Eating well No bowel or bladder dysfunction Posterior home today Wound care, activity precautions, signs and symptoms to watch were fully discussed. Postoperative medications discussed. All questions answered He will follow up with Exam Results Vital Signs Date Time Temp Pulse Resp B/P (MAP) Pulse Ox O2 Delivery O2 Flow Rate FiO2 08/18/17 08:40 98.0 83 18 138/58 (84) 95 08/17/17 19:08 21 Physical Examination Resp: CTA. Pt just had nebulizer tx. Heart; NSR no murmurs Abd: Soft positive bs Skin: No cyanosis or erythema. Muscle: Moves all 4 extremities well good strength in LEs. Neuro: Pt awake and alert. Follows commands well. Speech clear and appropriate. Tim Patrick MD Aug 18, 2017 12:40
== END 2017-08-18 11:57 | disposition home health service (06) | DRG 459 ==
LOC: HSDI 06:27 → N05A 17:38
PROVIDERS: ADMIT Neurological Surgery; ATTEND Neurological Surgery
PROC: 0SB40ZZ Excision of Lumbosacral Disc, Open Approach (ICD-10-PCS; 2017-08-12)
PROC: 01NB0ZZ Release Lumbar Nerve, Open Approach (ICD-10-PCS; 2017-08-12)
PROC: 0SP004Z Removal of Internal Fixation Device from Lumbar Vertebral Joint, Open Approach (ICD-10-PCS; 2017-08-12)
PROC: 4A11X4G Monitoring of Peripheral Nervous Electrical Activity, Intraoperative, External Approach (ICD-10-PCS; 2017-08-12)
PROC: 0SG30AJ Fusion of Lumbosacral Joint with Interbody Fusion Device, Posterior Approach, Anterior Column, Open Approach (ICD-10-PCS; principal; 2017-08-12 09:05)
DX: M51.17 Intervertebral disc disorders with radiculopathy, lumbosacral region (principal); J18.9 Pneumonia, unspecified organism; D69.6 Thrombocytopenia, unspecified; I50.9 Heart failure, unspecified; J44.1 Chronic obstructive pulmonary disease with (acute) exacerbation; E83.39 Other disorders of phosphorus metabolism; D64.9 Anemia, unspecified; J98.11 Atelectasis; E78.5 Hyperlipidemia, unspecified; M47.26 Other spondylosis with radiculopathy, lumbar region; F10.10 Alcohol abuse, uncomplicated; K59.00 Constipation, unspecified; M48.061 Spinal stenosis, lumbar region without neurogenic claudication; M19.90 Unspecified osteoarthritis, unspecified site; F17.210 Nicotine dependence, cigarettes, uncomplicated; I10 Essential (primary) hypertension; Z88.0 Allergy status to penicillin
CPT/HCPCS: 36600; 71010; 71275; 72100; 76000; 80053; 80069; 82805; 83036; 83735; 83880; 84100; 84439; 84443; 85025; 85610; 85730; 86850; 86900; 86901; 87070; 87205; 93005; 93306; 94150; 94640; 94664; C1713; C9113; J0131; J0690; J1100; J1170; J1580; J1644; J2175; J2250; J2270; J2370; J2405; J2710; J3010; J3370; J3480; J7050; J7120; J7611; J7613; L0484; Q9967

== ENCOUNTER 2018-01-08 07:40 | Day surgery (SDC) | payer MEDICARE, OTHER ==
[~2018-01-08] VITALS: Ht 180.3 cm; Wt 80.0 kg
[~2018-01-08 07:40] MED LIST changes: +DOCU100C15 PO; +FURO40TA; +HYDR-3535 PO; -ROSU10 PO; +ROSU1TAB6; +TEMA30CA; -TEMA7.5C PO; +TIOT1AER; +ZOLP10TA3
[2018-01-08] MEDS ORDERED: IOHEXOL 180 MG/ML 20 ML VIAL (for RAD DIAG) IT ONE (07:41)
[2018-01-08 08:01] VITALS: BP 124/87; PULSE 95; RESP 20; TEMP 98; O2SAT 94
[2018-01-08] MEDS ORDERED: LACTATED RINGER'S 1000 ML INJ 1,000 ML IV SCH ×2 (08:15→10:52)
[2018-01-08] MEDS ORDERED: DIAZEPAM 5 MG TAB PO SCH (08:15)
[2018-01-08 08:27] LABS: AUTOMATED NEUTROPHIL # 2.3 TH/MM3 (1.8-7.7); BASOPHIL % 0.6 % (0.0-2.0); EOSINOPHIL # 0.3 TH/MM3 (0-0.4); EOSINOPHIL % 6.9 % (0.0-4.0); HEMATOCRIT 41.9 % (39.0-51.0); HEMOGLOBIN 14.8 GM/DL (13.0-17.0); LYMPH % 33.8 % (9.0-44.0); LYMPHOCYTE # 1.6 TH/MM3 (1.0-4.8); MEAN CORPUSCULAR HEMOGLOBIN 33.6 PG (27.0-34.0); MEAN CORPUSCULAR HGB CONC 35.3 % (32.0-36.0); MEAN PLATELET VOLUME 8.9 FL (7.0-11.0); MONO % 9.6 % (0.0-8.0); MONOCYTE # 0.4 TH/MM3 (0-0.9); NEUT % 49.1 % (16.0-70.0); PLATELET COUNT 95 TH/MM3 (150-450); RED BLOOD COUNT 4.41 MIL/MM3 (4.50-5.90); RED CELL DISTRIBUTION WIDTH 13.3 % (11.6-17.2); WHITE BLOOD COUNT 4.7 TH/MM3 (4.0-11.0)
[2018-01-08 08:44] LABS: BICARBONATE 27.5 MEQ/L (21.0-32.0); CALCIUM 8.7 MG/DL (8.5-10.1); CREATININE 1.28 MG/DL (0.60-1.30)
[2018-01-08 09:51] LABS: INTERNATIONAL NORMALIZED RATIO 1.1 RATIO; PROTHROMBIN TIME - PATIENT 11.1 SEC (9.8-11.6)
--- NOTE | 2018-01-08 10:53 | PD.RAD ---
Post Procedure Progress Note Pre Procedure Diagnosis: (1) Lumbar stenosis Post Procedure Diagnosis: (1) Lumbar stenosis Procedure Date: Jan 08, 2018 Supervising Radiologist: Haseeb Tsai Proceduralist/Assist: Adam Gallegos, RT(R), RT Jolie(R) Anesthesia: Local Plan of Activity Patient to Unit: [facility] Patient Condition: Good See PACS Report for procedural detail/treatment Haseeb Tsai MD Jan 08, 2018 10:53
[2018-01-08] MEDS ORDERED: ACETAMINOPHEN 325 MG TAB PO PRN (11:00)
[2018-01-08] MEDS ORDERED: oxyCODONE/ACETAMINOPHEN 5 MG/325 MG TAB PO PRN (11:00)
--- NOTE | 2018-01-08 11:38 | RADRPT ---
EXAM DATE/TIME: 01/08/2018 10:28 [facility] COMPARISON: CT LUMBAR SPINE W/O CONTRAST, January 08, 2018, 11:06. INDICATIONS : Patient presents with lower back pain in need of lumbar myelogram for evaluation. MEDICAL HISTORY : Spinal stenosis Lumbar spondylosis COPD HTN High cholesterol Osteoarthritis Kidney stones SURGICAL HISTORY : Lumbar fusion Bilateral cataract Tonsillectomy Total knee replacement ENCOUNTER: Initial ACUITY: 4-6 months PAIN SCORE: 6/10 LOCATION: Lower back LUMBAR PUNCTURE TIME: 1034 hours FLUORO TIME: 0.3 minutes IMAGE SERIES: 3 CONTRAST: 15 cc Omnipaque (iohexol) 180 ACCESS LEVEL: L2-3 PROCEDURE : 1. Fluoroscopic guided lumbar puncture. 2. Lumbar myelogram. The risks, benefits and alternatives to the procedure were explained and verbal and written consent w as obtained. The site was prepped in sterile fashion. Full sterile technique was used, including ca p, mask, sterile gloves and gown and a large sterile sheet. Hand hygiene and 2% chlorhexidine and/or betadine/alcohol prep was utilized per protocol for cutaneous antisepsis. The skin and subcutaneous tissues were infiltrated with local anesthetic solution. With fluoroscopic guidance the lumbar thecal sac was punctured at level above and a diagnostic quanti ty of contrast is present in the subarachnoid space. Radiographs were obtained of the lumbar spine. The patient tolerated procedure well and there were no complications. CT scan is to be performed for further evaluation. CONCLUSION: Uncomplicated lumbar myelogram as above. CT scan is to be performed for further evaluation. Haseeb Tsai MD on January 08, 2018 at 11:36 Board Certified Radiologist. This report was verified electronically.
[2018-01-08 12:00] VITALS: BP 116/71; PULSE 85; RESP 16; TEMP 97.9; O2SAT 93
--- NOTE | 2018-01-08 14:45 | RADRPT ---
EXAM DATE/TIME: 01/08/2018 11:06 [facility] COMPARISON: No previous studies available for comparison. INDICATIONS : Post myelogram. RADIATION DOSE: 36.43 CTDIvol (mGy) CT of the lumbar spine was performed post myelogram. MEDICAL HISTORY : None SURGICAL HISTORY : Lumbar surgery. ENCOUNTER: Initial ACUITY: 1 day PAIN SCALE: 0/10 LOCATION: lower back TECHNIQUE: Volumetric scanning of the lumbar spine was performed. Multiplanar reconstructions in the sagittal, coronal and oblique axial planes were performed. Using automated exposure control and adjustment of the mA and/or kV according to patient size, radiation dose was kept as low as reasonably achievable t o obtain optimal diagnostic quality images. DICOM format image data is available electronically for review and comparison. FINDINGS: VERTEBRAE: Post surgical features of prior transpedicular screw and bozena fixation at L3-S1. There are left-s ided transpedicular screws at all levels. There are right-sided transpedicular screws at L5-S1 w ith apparent removal of transpedicular screws at L3-4. There are also intradiscal cages at L3-S1 . Hardware appears intact. There are prominent johnny-hardware lucencies at S1 level consistent wi th loosening. Extensive and endplate changes at L4-S1. Vertebral body heights are otherwise intact. Conus terminates at L1 level. ALIGNMENT: 6 mm anterolisthesis of L4 on L5-5 millimeters anterolisthesis of L5 on S1. Remaining size align ment is intact. Paravertebral soft tissues: There are 3 mm nonobstructing calcified calyceal calculi in the superior and inferior poles of t he right kidney. Moderate atherosclerotic calcifications of the infrarenal aorta without aneurys m. No significant intraperitoneal adenopathy. T12-L1: The thecal sac has a normal diameter. No evidence of disc bulge or protrusion. The neural foramina are patent bilaterally. L1-L2: Mild diffuse disc bulge without central canal narrowing. Neural foramina are patent bilaterally. L2-L3: Mild diffuse disc bulge with subtle effacement of the anterior thecal sac. Mild ligament of flavum hy pertrophy. Mild caudal left neural foraminal narrowing. L3-L4: Right-sided laminectomy with decompression of the central canal. Diffuse disc bulge and ligament flav um hypertrophy. Mild caudal bilateral neural foraminal narrowing. .L4-L5: Right-sided laminectomy with decompression of the central canal. Diffuse disc bulge and posterior ost eophytes with left facet arthropathy and osteophytes resulting in narrowing of the left lateral reces s. Mild right and moderate left neural foraminal narrowing secondary to disc osteophyte. L5-S1: Right-sided laminectomy with decompression of the central canal. Diffuse disc bulge with posterior os teophytes effacing the anterior central canal. Severe bilateral neural foraminal narrowing. CONCLUSION: 1. Status post laminectomy, disc cage, and transpedicular screw and bozena fixation at L3-S1 with appare nt removal of right transpedicular screws at L3-4. 2. Prominent johnny-screw lucency at S1 consistent with S1 screw loosening. 3. Mild grade 1 anterolisthesis of L4 on L5 and L5 on S1. 4. Multilevel degenerative spondylosis of the lumbar spine with severe bilateral neural foraminal lidia nosis at L5-S1. 5. No significant central canal stenosis. 6. 3 mm nonobstructing calcified calyceal calculi in the superior and inferior poles of the right kid kristen. Haseeb Tsai MD on January 08, 2018 at 14:01 Board Certified Radiologist. This report was verified electronically.
== END 2018-01-08 14:55 | disposition home or self-care (01) ==
LOC: HRIP 07:40 → HROP 07:40
PROVIDERS: ATTEND Physician Assistant Medical
DX: M51.16 Intervertebral disc disorders with radiculopathy, lumbar region (principal); M47.816 Spondylosis without myelopathy or radiculopathy, lumbar region; M48.061 Spinal stenosis, lumbar region without neurogenic claudication; I10 Essential (primary) hypertension; J44.9 Chronic obstructive pulmonary disease, unspecified; R79.1 Abnormal coagulation profile; E78.00 Pure hypercholesterolemia, unspecified; N20.0 Calculus of kidney; Z98.1 Arthrodesis status; Z01.818 Encounter for other preprocedural examination
CPT/HCPCS: 62304; 72131; 80048; 85025; 85610; 85730; J7120; Q9965; 77003